=== PATIENT | female | born 1990 | race African-American/Black ===

== ENCOUNTER → 2016-11-14 | Outpatient (CLI) | payer BC ==
[~2016-11-14] MED LIST: CEPH500C PO; CEPH500C2 PO; PRENTAB26 PO
[2016-11-14 16:37] LABS: URINE APPEARANCE CLOUDY (CLEAR); URINE BILIRUBIN NEG (NEG); URINE COLOR YELLOW; URINE EPITHELIAL CELL AUTO >30 /lpf (0-5); URINE NITRITE NEG (NEG); URINE SPECIFIC GRAVITY 1.028 (1.000-1.030); UROBILINOGEN NEG (NEG)
[2016-11-14 16:40] LABS: MANUAL MICROSCOPIC REQUIRED? NO; REVIEW REQ? NO
== END | disposition home or self-care (01) ==
LOC: C.LABSPEC 16:09
PROVIDERS: ATTEND Obstetrics & Gynecology
DX: Z34.90 Encounter for supervision of normal pregnancy, unspecified, unspecified trimester (principal)

== ENCOUNTER → 2016-11-19 | Outpatient (CLI) | payer BC ==
[2016-11-19 15:22] LABS: BASO % 0.2 %; BASO ABS # 0.01 K/uL (0-0.2); COMPLETE YES; EOS % 0.6 %; HEMATOCRIT 37.3 % (37-47); IG% 0.2 %; LYMPH ABS # 1.95 K/uL (1.2-3.4); MEAN CELL VOLUME 78.4 fL (80-100); MEAN CORPUSCULAR HEMOGLOBIN 25.4 pg (25-34); MEAN CORPUSCULAR HGB CONC 32.4 g/dl (32-36); MEAN PLATELET VOLUME 10.9 fL (7.4-10.4); MONO % 11.5 %; NEUT % 49.5 %; PLATELET COUNT 335 K/uL (130-400); RED BLOOD COUNT 4.76 M/uL (4.2-5.4); WHITE BLOOD COUNT 5.13 K/uL (4.8-10.8)
== END | disposition home or self-care (01) ==
LOC: C.LAB1850 13:12
PROVIDERS: ATTEND Obstetrics & Gynecology
DX: Z34.90 Encounter for supervision of normal pregnancy, unspecified, unspecified trimester (principal); Z20.9 Contact with and (suspected) exposure to unspecified communicable disease

== ENCOUNTER → 2016-11-19 | Outpatient (CLI) | payer BC ==
[2016-11-22 00:25] LABS: CHLAMYDIA TRACH RNA*** NOT DETECTED (NOT DETECTED); GC (NEIS GONORRHOEAE)RNA** NOT DETECTED (NOT DETECTED)
== END | disposition home or self-care (01) ==
LOC: C.LABSPEC 18:03
PROVIDERS: ATTEND Obstetrics & Gynecology
DX: Z34.90 Encounter for supervision of normal pregnancy, unspecified, unspecified trimester (principal)

== ENCOUNTER → 2016-11-19 | Outpatient (CLI) | payer BC | END | disposition home or self-care (01) | LOC: C.PAPS 10:49 | PROVIDERS: ATTEND Obstetrics & Gynecology | DX: Z34.90 Encounter for supervision of normal pregnancy, unspecified, unspecified trimester (principal) ==

== ENCOUNTER → 2017-01-22 | Outpatient (CLI) | payer BC ==
[2017-01-22 18:19] LABS: GTGD 50 Grams
[2017-01-26 12:36] LABS: AFP CONCENTRATION 40.9 NG/ML; AFP MULTIPLE OF MEDIAN 1.13; AFPTS GESTATIONAL AGE 17.3 WEEKS; AFPTS INSULIN DEP DIABETIC? NO; AFPTS MATERNAL WT 206 LBS; ALPHA-FETOPROTEIN RACE AFRICAN AMERICAN=B; EDD DETERMINED BY ULTRASOUND; HISTORY OF NTD NO; REPEAT SAMPLE? NO
== END | disposition home or self-care (01) ==
LOC: C.LAB 17:25
PROVIDERS: ATTEND Obstetrics & Gynecology
DX: Z34.90 Encounter for supervision of normal pregnancy, unspecified, unspecified trimester (principal)

== ENCOUNTER 2017-02-06 16:14 | Emergency (ER) | payer BC ==
[~2017-02-06] VITALS: Ht 177.8 cm; Wt 92.1 kg
[2017-02-06 16:22] VITALS: TEMP 36.7; Ht 177.8 cm; Wt 92.1 kg
[2017-02-06] MEDS ORDERED: XYLOCAINE 1%/SOD BICARB 20 ML VIAL INFIL ONE (16:45)
--- NOTE | 2017-02-06 16:45 | EMERGENCY ROOM VISIT NOTE ---
ED Visit Note First contact with patient: 16:34 CHIEF COMPLAINT: Infection of the gluteal cleft HISTORY OF PRESENT ILLNESS: This 26-year-old female patient presents to the emergency department ambulatory after they noticed a hard, red, tender area to the gluteal cleft which has been intermittent since October but worse since yesterday. It is slowly getting larger, more painful and tender. No fever, chills, or loss of appetite. There has been no drainage from the area. There was nail injury to the area preceding the infection. They rate the pain as sharp9 and /10. Tetanus shot is up to date. They have tried nothing. The patient is not diabetic. The patient has no history of subcutaneous abscesses. The patient is 19 weeks . REVIEW OF SYSTEMS: A 6 system review of systems was completed with positives and pertinent negatives listed in the HPI. ALLERGIES: No known drug allergies MEDICATIONS: PMH: Patient denies SOCIAL HISTORY: The patient does not smoke. She lives locally PHYSICAL EXAM: Vital Signs: Reviewed Nurse's notes, vital signs stable. GENERAL : As a 26-year-old female, no acute distress, non toxic in appearance, well- developed well-nourished. SKIN: There is an erythematous indurated area to the gluteal cleft which measures about 1 cm in diameter. It is fluctuant but there is no pointing or drainage. There is a zone of inflammation around it but no lymphangitis. Capillary refill less than 2 seconds. MUSCULOSKELETAL: There is no limitation of the range of motion of the lower extremities. EMERGENCY DEPARTMENT COURSE: I examined the patient. After saline and Betadine cleansing and 6 mL of 1% buffered lidocaine anesthesia, the abscess was incised with a number 11 scalpel blade. A large amount of purulent material was released with more expressed by pressure. A swab was obtained for culture. The abscess cavity was further probed with a needle route delivery driver and the deep pocket expressed. The abscess cavity was then copiously irrigated with sterile saline under pressure. The area was then packed with plain packing. The area was cleaned with sterile saline and dressed with bacitracin and a bulky bandage. The patient tolerated the procedure well. heart tones were checked and were within normal limits The patient's heart rate improved after the procedure was performed She was given Tylenol. I discussed the use of narcotics during and the patient declined any narcotics. The patient will be placed on Keflex. A wound culture is pending. She should return in 48 hours for recheck and packing removal She should return sooner with worsening symptoms The patient was discharged home in stable condition. Current/Historical Medications Scheduled Cephalexin Monohydrate (Keflex), 500 MG PO TID Multivit/Min/Iron/Fol Ac/Pren ( Vitamin), 1 TAB PO HS Allergies Coded Allergies: No Known Allergies (Unverified , 02/06/17) Vital Signs Date Time Temp Pulse Resp B/P Pulse Ox O2 Delivery O2 Flow Rate FiO2 02/06/17 17:15 86 119/74 99 Room Air 02/06/17 16:22 36.7 110 16 115/75 98 Room Air Medications Administered Medications (Trade) Dose Ordered Sig/Roland Route Start Time Stop Time Status Last Admin Dose Admin Acetaminophen (Tylenol Tab) 1,000 mg NOW STAT PO 02/06/17 17:12 02/06/17 17:13 DC 02/06/17 17:19 1,000 MG Departure Information Impression Primary Impression: Pilonidal abscess Dispostion Home / Self-Care Condition GOOD Prescriptions Cephalexin Monohydrate (Keflex) 500 Mg Cap 500 MG PO TID for 7 Days, #21 CAP Prov: Cristina Thrasher PA-C 02/06/17 Referrals No Doctor, Assigned (PCP) Phil Powell M.D. Patient Instructions ED Cyst Pilonidal Infected [place], My [facility] Additional Instructions Return in 48 hours for a wound recheck and packing removal. Remove the outer dressing if it becomes soiled or wet. Tylenol according to package instructions for pain. Keflex as prescribed, until finished. Return sooner with any worsening redness, swelling, fevers. You may need to see general surgery after you have the baby for possible definitive excision.
[2017-02-06] MEDS ORDERED: ACETAMINOPHEN 500 MG TAB PO STA (17:12)
[2017-02-06 17:15] VITALS: BP 119/74; PULSE 86; O2SAT 99
[2017-02-06] MEDS ORDERED: CEPH500C PO (17:30)
[2017-03-03] MEDS ORDERED: PRENTAB26 PO (17:11)
== END 2017-02-06 17:50 | disposition home or self-care (01) ==
LOC: C.EDB 16:14 → C.EDD 17:50
DX: L05.01 Pilonidal cyst with abscess (principal); Z3A.19 19 weeks gestation of pregnancy

== ENCOUNTER 2017-02-08 17:19 | Emergency (ER) | payer BC ==
[~2017-02-08] VITALS: Ht 177.8 cm; Wt 91.7 kg
[~2017-02-08 17:19] MED LIST changes: -CEPH500C2 PO; -PRENTAB26 PO
[2017-02-08 17:23] VITALS: BP 119/78; TEMP 36.5; Ht 177.8 cm; Wt 91.7 kg
--- NOTE | 2017-02-08 17:58 | EMERGENCY ROOM VISIT NOTE ---
ED Visit Note First contact with patient: 17:31 CHIEF COMPLAINT: Packing removal History of present illness: Patient is a 26-year-old female who returns to the emergency department as advised for reevaluation of a pilonidal cyst abscess and packing removal. She had an I&D procedure performed 2 days ago. She reports decreased drainage, less pain and swelling. She has been taking the antibiotics as prescribed. There has not been any fever, chills, nausea or vomiting today. REVIEW OF SYSTEMS: Review of systems as per HPI. All other systems reviewed were negative. At least 6 systems reviewed. PMH: Electronic medical records are reviewed and summarized as above/below. See Problem List. SOCIAL HISTORY: Patient lives at home with her significant other. Nonsmoker. PHYSICAL EXAM: Vital Signs: Reviewed Nurse's notes. MENTAL STATUS: Alert, oriented, and not in distress. SKIN: Examination of the gluteal cleft show the I&D site with packing in place. Packing was removed. Area was palpated, there was no significant induration and no drainage expressed after packing removal. EMERGENCY DEPARTMENT COURSE: Culture results were reviewed. She is growing coag -negative staph without sensitivities and normal skin neida. Keflex should be appropriate coverage for this. Continued wound care measures were discussed with the patient and her significant other. She was advised to complete the course of antibiotics as previously prescribed, and to return to the emergency department if her symptoms return. She is understanding of this and was agreeable. She was discharged home in good condition. Problem List Medical Problems: (1) PCOS (polycystic ovarian syndrome) Status: Chronic Current/Historical Medications Scheduled Cephalexin Monohydrate (Keflex), 500 MG PO TID Multivit/Min/Iron/Fol Ac/Pren ( Vitamin), 1 TAB PO HS Allergies Coded Allergies: No Known Allergies (Unverified , 02/06/17) Vital Signs Date Time Temp Pulse Resp B/P Pulse Ox O2 Delivery O2 Flow Rate FiO2 02/08/17 18:04 98 18 100 02/08/17 17:23 36.5 102 20 119/78 100 Room Air Departure Information Impression Primary Impression: Abscess packing removal Referrals No Doctor, Assigned (PCP) [facility] Instructions [facility] Additional Instructions Finish Keflex as previously prescribed. Tylenol if needed for discomfort. Clean the area gently with mild soap and water and cover with a bandage until drainage subsides. Return to the emergency department as needed.
[2017-02-08 18:04] VITALS: PULSE 98; O2SAT 100
[2017-03-03] MEDS ORDERED: PRENTAB26 PO (17:11)
== END 2017-02-08 18:05 | disposition home or self-care (01) ==
LOC: C.EDB 17:20 → C.EDD 18:05
DX: Z48.00 Encounter for change or removal of nonsurgical wound dressing (principal); L05.01 Pilonidal cyst with abscess; Z98.890 Other specified postprocedural states; B95.7 Other staphylococcus as the cause of diseases classified elsewhere

== ENCOUNTER 2017-03-01 08:33 | Emergency (ER) | payer BC ==
[~2017-03-01] VITALS: Ht 177.8 cm; Wt 82.5 kg
[2017-03-01 08:42] VITALS: TEMP 36.6; Ht 177.8 cm; Wt 82.5 kg
--- NOTE | 2017-03-01 09:35 | EMERGENCY ROOM VISIT NOTE ---
History Report prepared by Sakshi: Lonny Wilkins Under the Supervision of: Dr. Gabino Guaman M.D. First contact with patient: 09:27 Chief Complaint: WOUND INFECTION Stated Complaint: CYST Nursing Triage Summary: pt reports pylinidol cyst had drained 1 month ago has returned las week , History of Present Illness The patient is a 27 year old female who presents to the Emergency Room with complaints of a reoccurring cyst located on her upper buttock that began coming back 6 days ago. She was seen in the ER 4 weeks ago for the same cyst. At that time, she had the cyst drained and packed. Currently, she states that her cyst is a lot smaller, but it is a lot more painful. She rates her pain a 7/10 in severity. She denies experiencing fevers, chills, or active drainage. Last time , she was placed on Keflex that she says worked well for her. She notes that she is 22 weeks . She is not having any trouble with her . Source of History: patient, spouse/significant other Onset: 6 days ago Position: buttock Symptom Intensity: 7/10 Quality: sharp Timing: other (Reoccuring) Associated Symptoms: No chills, No fevers Note: She denies any active drainage. Review of Systems See HPI for pertinent positives & negatives. A total of 10 systems reviewed and were otherwise negative. Past Medical & Surgical Medical Problems: (1) PCOS (polycystic ovarian syndrome) Old medical records were reviewed. Nurse's notes were reviewed and I agree with. Family History Patient reports no known family medical history. Social History Smoking Status: Never Smoker Smokeless Tobacco Use: No Drug Use: none Marital Status: Housing Status: lives with family Occupation Status: employed Current/Historical Medications Scheduled Multivit/Min/Iron/Fol Ac/Pren ( Vitamin), 1 TAB PO HS Allergies Coded Allergies: No Known Allergies (Unverified , 03/01/17) Physical Exam Vital Signs Date Time Temp Pulse Resp B/P Pulse Ox O2 Delivery O2 Flow Rate FiO2 03/01/17 11:01 86 16 137/78 99 03/01/17 08:42 36.6 110 20 117/72 98 Room Air Physical Exam General: Well developed well nourished in no acute distress, breathing comfortably on room air. Normal speech HEENT: Normal cephalic atraumatic. Pupils are equal round and reactive to light. Extraocular movements are intact. Oropharynx is pink with moist mucous membranes. No swelling of the mouth lips or tongue. Neck: Supple with a midline trachea. No meningeal signs or stiffness, no JVD or bruits. No Stridor. Chest: Clear to auscultation bilaterally. No wheezes or rhonchi. No increased work of breathing. Heart: regular rate and rhythm. Abdomen: Soft nontender, nondistended without rebound guarding or rigidity. Extremities: No cyanosis clubbing or edema. No calf tenderness or assymetry Spine/Back. Non tender to palpation. No CVA tenderness Buttock: There is a 1 cm fluctuant abscess on the upper buttock. No drainage. Skin: Good turgor without rashes. Neurologic exam: Cranial nerves two through 12 are intact. Motor and sensation are intact and symmetrical throughout. Medical Decision & Procedures Medications Administered Medications (Trade) Dose Ordered Sig/Roland Route Start Time Stop Time Status Last Admin Dose Admin Cephalexin Monohydrate (Keflex 500MG Home Pack) 1 homepack NOW ONCE PO 03/01/17 11:00 03/01/17 11:01 DC 03/01/17 11:00 1 HOMEPACK Procedure Incision & Drainage Indication: Abscess. Location: Upper buttock (Pilonoidal) Verbal consent was obtained after the risks and benefits were explained, including but not limited to bleeding, scarring, infection, pain, and bone/joint /nerve damage. At this time, the risks of the procedure are less than the risks of NOT performing the procedure. A time out was taken and the correct patient and site identified. The skin was prepped with betadine and a sterile field set. The wound was anesthetized with 1 cc of 1% lidocaine without epinephrine. The abscess cavity was entered with a number 11 blade and copious purulent pus material expressed. Copious irrigation was performed using normal saline. The wound was explored for foreign bodies and none found. Debridement was not performed. Packing with quarter inch gauze placed and a sterile dressing applied. Detailed wound care instructions and signs and symptoms of worsening infection reviewed with the patient. No complications and the patient tolerated the procedure well. ED Course 0927: Past medical records reviewed. The patient was evaluated in room B5, and a complete history and physical examination were performed. 0945: Ordered Lidocaine HCl 20 ml INFIL 1040: I performed an I&D procedure at this time. Please see the procedure note for more information. 1100: Ordered Cephalexin Monohydrate 1 homepack PO 1105: Upon reevaluation, the patient is resting. Her pain is better at a 4/10. I discussed the results and treatment plan with her. She verbalized agreement of the treatment plan. The patient was discharged home. Medical Decision Differentials include pilonidal abscess, abscess, and cellulitis. Medication Reconciliation: I attest that I have personally reviewed the patients current medication list. Blood pressure Screening: Patient was found to have normal blood pressure on screening and does not require follow-up. This patient comes in as described above. She has a pilonidal abscess that has recurred. It is fluctuant. She has no systemic complaints. She has no fever or chills. She is but has no complications of her at this point and had no contractions or gush of fluids. The abscess was numbed as outlined above a large amount of purulent drainage was obtained she was packed with quarter-inch gauze. She is to return in 2 days for removal and possibly to repack it if deemed necessary at the time. I recommend that she follow up with a surgeon this week as well. They may ultimately need to do surgery on her but will likely waits was after she is delivered. I'll start her back on the Keflex. She should return if: increasing pain , bleeding or drainage, worsening of symptoms, any new problems or concerns. Impression Primary Impression: Pilonidal abscess Additional Impression: Scribe Attestation The scribe's documentation has been prepared under my direction and personally reviewed by me in its entirety. I confirm that the note above accurately reflects all work, treatment, procedures, and medical decision making performed by me. Departure Information Dispostion Home / Self-Care Referrals No Doctor, Assigned (PCP) Champ Lama M.D. Forms HOME CARE DOCUMENTATION FORM, IMPORTANT VISIT INFORMATION, WORK / SCHOOL INSTRUCTIONS Patient Instructions My [facility], Pilonidal Cyst Additional Instructions REturn if 2 days for packing removal Return sooner if: fever, increasing pain or bleeding, worsening of symptoms, any new problems or concerns. Use Keflex 500 mg 3 times a dayantibiotic Follow-up with surgeon (Dr. Lama) this week for recheck For pain, may use acetaminophen/Tyelenol 650 mg every 6 hours, take with food. Do not take with other meds that contain acetaminophen/tyelenol Problem Qualifiers
[2017-03-01] MEDS ORDERED: XYLOCAINE 1%/SOD BICARB 20 ML VIAL INFIL ONE (09:45)
[2017-03-01] MEDS ORDERED: CEPHALEXIN 500MG HOME PACK 1 EA BTL PO ONE (11:00)
[2017-03-01 11:01] VITALS: BP 137/78; PULSE 86; O2SAT 99
[2017-03-03] MEDS ORDERED: PRENTAB26 PO (17:11)
== END 2017-03-01 11:02 | disposition home or self-care (01) ==
LOC: C.EDB 08:34
DX: L05.01 Pilonidal cyst with abscess (principal); Z33.1 Pregnant state, incidental

== ENCOUNTER 2017-03-03 19:25 | Emergency (ER) | payer BC ==
[~2017-03-03] VITALS: Ht 177.8 cm; Wt 94.3 kg
[~2017-03-03 19:25] MED LIST changes: -CEPH500C PO; +PRENTAB26 PO
[2017-03-03 19:44] VITALS: TEMP 36.7; Ht 177.8 cm; Wt 94.3 kg
[2017-03-03] MEDS ORDERED: CEPH500C2 PO (20:04)
[2017-03-03 20:10] VITALS: BP 138/89; PULSE 112; O2SAT 98
--- NOTE | 2017-03-04 19:09 | EMERGENCY ROOM VISIT NOTE ---
ED Visit Note First contact with patient: 19:48 CHIEF COMPLAINT: Abscess recheck.. HISTORY OF PRESENT ILLNESS: Ms. Day is a 27-year-old black female who ambulates into the ED accompanied by male friend requesting a recheck on a pilonidal abscess and packing removal. Patient reports she was seen in this ED 2 days ago and had an I&D procedure performed on a pilonidal abscess. She was prescribed Keflex and discharged home. Patient reports being discharge she is feeling much better. She has had no fevers, chills, sweats, abdominal pain, nausea, vomiting, decreased appetite. She reports her boyfriend looked at her abscess and feels like it is healing well. She does report she has had a small drainage of pus like material from the wound but no active bleeding. PHYSICAL EXAM: Vital Signs: Date Time Temp Pulse Resp B/P Pulse Ox O2 Delivery O2 Flow Rate FiO2 03/03/17 20:10 112 18 138/89 98 03/03/17 19:44 36.7 109 16 122/71 98 Room Air General: 27 year-old female in no acute distress, nontoxic appearing, afebrile and hemodynamically stable. Patient is very anxious. Neurological: Awake, alert and oriented to person, place and time. Answering questions appropriately and following commands. Skin: Warm, dry and pink. Right Buttock: Abscess site was identified. There was mild tenderness over the area but there was no induration, fluctuance, erythema or appearance of cellulitis. ED COURSE: Patient is assessed as noted above. Packing was easily removed. After packing the area was reexamined and I was not able to express any additional purulent material. Patient was educated about her condition and instructed on her treatment plan; she verbalized understanding and agreement with this plan. CLINICAL IMPRESSION: Abscess Recheck. Packing removal. DISPOSITION: Patient discharged to home in stable condition accompanied by a male friend; prior to departure she was reassessed and subjectively reported that she was pain and symptom-free. PLAN: Patient was encouraged to continue her current medications as prescribed including her antibiotic. Patient was encouraged to follow-up with family physician at the end of the course of her antibiotics for recheck. Patient was encouraged return the ED for return of pain, fevers, puslike drainage, red streaking or any new/concerning symptoms.
== END 2017-03-03 20:10 | disposition home or self-care (01) ==
LOC: C.EDB 19:26 → C.EDD 20:10
DX: Z09 Encounter for follow-up examination after completed treatment for conditions other than malignant neoplasm (principal); L05.01 Pilonidal cyst with abscess

== ENCOUNTER → 2017-04-09 | Outpatient (CLI) | payer BC ==
[~2017-04-09] MED LIST changes: +CEPH500C2 PO
[2017-04-09 16:48] LABS: HEMATOCRIT 36.6 % (37-47)
[2017-04-09 17:12] LABS: GTGD 50 Grams
== END | disposition home or self-care (01) ==
LOC: C.LAB1850 15:55
PROVIDERS: ATTEND Obstetrics & Gynecology
DX: Z34.90 Encounter for supervision of normal pregnancy, unspecified, unspecified trimester (principal)

== ENCOUNTER → 2017-04-09 | Outpatient (CLI) | payer BC ==
[2017-04-09 18:37] LABS: URINE APPEARANCE CLOUDY (CLEAR); URINE BILIRUBIN NEG (NEG); URINE COLOR DK YELLOW; URINE EPITHELIAL CELL AUTO >30 /lpf (0-5); URINE NITRITE NEG (NEG); URINE SPECIFIC GRAVITY 1.021 (1.000-1.030); UROBILINOGEN NEG (NEG)
[2017-04-09 18:40] LABS: MANUAL MICROSCOPIC REQUIRED? NO; REVIEW REQ? NO
== END | disposition home or self-care (01) ==
LOC: C.LABSPEC 17:38
PROVIDERS: ATTEND Obstetrics & Gynecology
DX: Z34.90 Encounter for supervision of normal pregnancy, unspecified, unspecified trimester (principal)

== ENCOUNTER → 2017-04-21 | Outpatient (CLI) | payer BC | END | disposition home or self-care (01) | LOC: C.LAB 07:32 | PROVIDERS: ATTEND Obstetrics & Gynecology | DX: O28.9 Unspecified abnormal findings on antenatal screening of mother (principal); Z3A.00 Weeks of gestation of pregnancy not specified ==

== ENCOUNTER → 2017-06-04 | Outpatient (CLI) | payer BC | END | disposition home or self-care (01) | LOC: C.LABSPEC 16:00 | PROVIDERS: ATTEND Obstetrics & Gynecology | DX: Z34.03 Encounter for supervision of normal first pregnancy, third trimester (principal); Z3A.00 Weeks of gestation of pregnancy not specified ==

== ENCOUNTER 2017-07-02 05:28 | Inpatient (IN) | payer BC ==
[~2017-07-02] VITALS: Ht 175.3 cm; Wt 105.7 kg
[2017-07-02] MEDS ORDERED: LACTATED RINGER'S 1000ML 1,000 ML IV SCH (05:55)
[2017-07-02] MEDS ORDERED: LACTATED RINGER'S 1000ML 1,000 ML IV PRN (05:55)
[2017-07-02 05:57] VITALS: Ht 175.3 cm; Wt 105.7 kg
[2017-07-02] MEDS ORDERED: EpHEDrine SULFATE INJ 50 MG/ML AMP ONE (06:57)
[2017-07-02] MEDS ORDERED: BUPIVACAINE 0.25% 30 ML VIAL ONE (06:57)
[2017-07-02] MEDS ORDERED: FENTANYL 2MCG/ML ROPIV 1.25MG/ML 100ML BAG EPI ONE (06:58)
[2017-07-02] MEDS ORDERED: FENTANYL CITRATE INJ 50 MCG/1 ML 2 ML VIAL ONE (06:58)
[2017-07-02 07:07] LABS: HEMATOCRIT 42.3 % (37-47); MEAN CELL VOLUME 87.9 fL (80-100); MEAN CORPUSCULAR HEMOGLOBIN 27.7 pg (25-34); MEAN CORPUSCULAR HGB CONC 31.4 g/dl (32-36); MEAN PLATELET VOLUME 12.4 fL (7.4-10.4); PLATELET COUNT 211 K/uL (130-400); RED BLOOD COUNT 4.81 M/uL (4.2-5.4); WHITE BLOOD COUNT 6.81 K/uL (4.8-10.8)
[2017-07-02] MEDS ORDERED: NALOXONE HCL INJ 1 MG in SODIUM CHLORIDE 0.9% 1000ML 1,000 ML IV PRN (07:40)
[2017-07-02] MEDS ORDERED: LACTATED RINGER'S 1000ML 500 ML IV PRN (07:40)
[2017-07-02] MEDS ORDERED: NALBUPHINE HCL INJ 10 MG/ML AMP IV PRN (07:45)
[2017-07-02] MEDS ORDERED: NALOXONE HCL INJ 0.4 MG/1 ML VIAL/CARP IV PRN (07:45)
[2017-07-02] MEDS ORDERED: DiphenhydrAMINE HCL 50 MG/ML VIAL IV PRN (07:45)
[2017-07-02] MEDS ORDERED: FENTANYL 2MCG/ML ROPIV 1.25MG/ML 100ML BAG EPI PRN (07:45)
[2017-07-02] MEDS ORDERED: EpHEDrine SULFATE INJ 50 MG/ML AMP IV PRN (07:45)
[2017-07-02] MEDS ORDERED: ONDANSETRON INJ 2 MG/ML 2 ML VIAL IV PRN (07:45)
[2017-07-02] MEDS ORDERED: OXYTOCIN 30 UNITS/500ML NSS IV ONE (11:42)
[2017-07-02 12:32] LABS: ALB/GLOB RATIO 0.6 (0.9-2); BUN/CREATININE RATIO 4.1 (10-20); CALCIUM 8.8 mg/dl (8.5-10.1); CREATININE 0.77 mg/dl (0.60-1.20); POTASSIUM 3.8 mmol/L (3.5-5.1); URIC ACID 5.1 mg/dl (2.6-7.2)
[2017-07-02] MEDS ORDERED: LANOLIN OINT EXT PRN ×2 (12:45)
[2017-07-02] MEDS ORDERED: OXYCODONE/ACETAMINOPHEN 5-325 TAB PO PRN (12:45)
[2017-07-02] MEDS ORDERED: SUPERCREAM 0.870 % 15GM JAR EXT PRN (12:45)
[2017-07-02] MEDS ORDERED: OXYTOCIN 30 UNITS/500ML NSS IV PRN (12:45)
[2017-07-02] MEDS ORDERED: HYDROCORTISONE ACETATE 25 MG SUPP PR PRN (12:45)
[2017-07-02] MEDS ORDERED: BENZOCAINE 20% AER SPR 82.5 GM CAN EXT PRN (12:45)
--- NOTE | 2017-07-02 13:25 | DELIVERY SUMMARY ---
DATE OF OPERATION: 07/02/2017 DELIVERY SUMMARY DATE OF DELIVERY: 07/02/2017. PREDELIVERY DIAGNOSES: 1. 27-year-old G3, P0-0-2-0 at 48 weeks 2 days. 2. Spontaneous labor. 3. Sickle cell trait. POSTDELIVERY DIAGNOSES: 1. 27-year-old G3, P0-0-2-0 at 48 weeks 2 days. 2. Spontaneous labor. 3. Sickle cell trait. PROCEDURE: 1. Spontaneous vaginal delivery. 2. Repair of 2nd degree laceration. DESCRIPTION OF DELIVERY: The patient progressed to complete with epidural anesthesia. After laboring down she began to push. She spontaneously vaginally delivered a viable female from the cephalic presentation. The head delivered in left occiput anterior position and then restituted to right occiput anterior position for delivery of the shoulder, the anterior shoulder followed by the posterior shoulder was delivered followed by the body. The baby was placed on the mother's abdomen and spontaneous cry was heard. Delayed cord clamping was performed and after 1 minute the cord was clamped and cut. Cord blood was obtained. The placenta was then delivered spontaneous and intact with a 3-vessel cord. Pitocin was given. The uterus and vagina were swept of all clots and debris. The cervix, vagina and perineum were inspected for lacerations and a second degree perineal laceration was noted. A rectal exam revealed no lacerations in the rectum. The laceration was repaired in standard fashion with 3-0 Vicryl in a running locked stitch. An additional stitch of 3-0 Vicryl was needed on the left vaginal wall to obtain hemostasis. Excellent hemostasis was achieved. The mother and baby tolerated the delivery well. Estimated blood loss 400 mL. FINDINGS: Viable female , Apgars 8 and 9, weight pending. Please see nursery records. At the conclusion of the delivery sponge, instrument and needle counts were correct x2. I attest to the content of the Intraoperative Record and any orders documented therein. Any exception s are noted below.
--- NOTE | 2017-07-02 13:36 | Anesthesia Procedure Note ---
Anesthesia Epidural Removal Nt Date & Time Jul 02, 2017 at 13:35 Vital Signs Pain Intensity: 0.0 Notes Mental Status: alert / awake / arousable, participated in evaluation Nausea / Vomiting: adequately controlled Pain: adequately controlled Airway Patency, RR, SpO2: stable & adequate BP & HR: stable & adequate Hydration State: stable & adequate Neuraxial Anesthesia: was administered Anesthetic Complications: no major complications apparent, pt satisfied with anesthetic care Epidural: removed without complications, with tip intact
[2017-07-02 16:58] VITALS: BP 127/85; PULSE 86; TEMP 36.7
[2017-07-02 19:05] VITALS: BP 170/84; PULSE 103; TEMP 36.9
[2017-07-02] MEDS: DOCUSATE SODIUM 100 MG CAP PO SCH (19:11)
[2017-07-02 19:55] VITALS: BP 128/83
[2017-07-02] MEDS: IBUPROFEN 600 MG TAB PO PRN (22:24)
[2017-07-03] VITALS (7 sets, daily range): BP systolic 111–146; BP diastolic 74–80; PULSE 66–98; TEMP 36.4–36.9; O2SAT 100
[2017-07-03 06:20] LABS: HEMATOCRIT 32.8 % (37-47)
--- NOTE | 2017-07-03 06:21 | Progress Note ---
Subjective Jul 03, 2017. Subjective conversation w/ patient, physical exam, chart review, lab review Ambulation: limited ambulation (to bathroom thus far) Voiding: no voiding problems Diet Tolerance: Regular Diet Lochia: Small Feeding Type: Breast Feeding Pain: Notes mild low abd cramping Comment: Found pt sitting up, conversing easily, denies post- issues or acute concerns. Review of Systems Constitutional: No fever, No chills Respiratory: No cough, No shortness of breath Cardiac: No chest pain Abdomen: No nausea, No vomiting, No diarrhea Female : No dysuria Objective Vital Signs Date Time Temp Pulse Resp B/P (MAP) Pulse Ox O2 Delivery O2 Flow Rate FiO2 07/03/17 04:20 36.9 77 18 137/80 (99) Room Air 07/03/17 00:01 Room Air 07/03/17 00:01 36.7 66 18 146/76 (99) Room Air 07/02/17 19:55 128/83 (98) 07/02/17 19:05 36.9 103 18 170/84 (112) Room Air 07/02/17 16:58 36.7 86 14 127/85 (99) Room Air 07/02/17 16:58 Room Air Physical Exam General Appearance: WELL-APPEARING, WD/WN, NO APPARENT DISTRESS Respiratory/Chest: lungs clear, normal breath sounds, no respiratory distress Cardiovascular: regular rate, rhythm, no edema, no murmur Abdomen: normal bowel sounds, non tender, soft Fundus: Firm, Non-Tender, Relation to Umbilicus (approx one down) Extremities: normal range of motion, no calf tenderness, + pedal edema ( minimal (B) edema) Laboratory Results Last 24 Hours Test 07/02/17 06:56 07/02/17 11:33 07/03/17 05:18 White Blood Count 6.81 K/uL Red Blood Count 4.81 M/uL Hemoglobin 13.3 g/dL Hematocrit 42.3 % Mean Corpuscular Volume 87.9 fL Mean Corpuscular Hemoglobin 27.7 pg Mean Corpuscular Hemoglobin Concent 31.4 g/dl RDW Standard Deviation 48.6 fL RDW Coefficient of Variation 15.3 % Platelet Count 211 K/uL Mean Platelet Volume 12.4 fL Sodium Level 140 mmol/L Potassium Level 3.8 mmol/L Chloride Level 108 mmol/L Carbon Dioxide Level 21 mmol/L Anion Gap 11.0 mmol/L Blood Urea Nitrogen 3 mg/dl Creatinine 0.77 mg/dl Est Creatinine Clear Calc Drug Dose 142.1 ml/min Estimated GFR () 122.6 Estimated GFR (Non- 105.8 BUN/Creatinine Ratio 4.1 Random Glucose 70 mg/dl Uric Acid 5.1 mg/dl Calcium Level 8.8 mg/dl Total Bilirubin 0.4 mg/dl Aspartate Amino Transf (AST/SGOT) 14 U/L Alanine Aminotransferase (ALT/SGPT) 13 U/L Alkaline Phosphatase 223 U/L Total Protein 7.0 gm/dl Albumin 2.5 gm/dl Globulin 4.5 gm/dl Albumin/Globulin Ratio 0.6 Assessment and Plan Problem List Medical Problems: (1) Abscess packing removal Status: Acute (2) Encounter for recheck of abscess following incision and drainage Status: Acute (3) PCOS (polycystic ovarian syndrome) Status: Chronic (4) Pilonidal abscess Status: Acute (5) Pilonidal abscess Status: Acute (6) Status: Acute Post- Day#: 1 Continue Routine Care: 27F s/p , now PPD #1. - Blood type O positive. GBS negative. Rubella immune. - Vital signs reviewed and stable. - Pain controlled with motrin. - No leg swelling or tenderness on calf palpation. Encourage ambulation. - Encourage breast feeding. - Hemoglobin pre-delivery 13.3, post-delivery 10.3. Bleeding has improved. Continue to monitor clinically. - Continue routine post-vaginal delivery care. - Pt agreed with above plan, all current questions answered. Luis Alberto Anderson MD, PGY1 Composite Science Teacher Physician Supervision Note: I was present with Dr. Anderson during the history and exam. I discussed the case with the resident and agree with the findings and plan as documented in the note. Any exceptions or clarifications are listed here: PPD#1 doing well, continue routine care. Documented By: Mel Salazar Resident Tracking Resident Involvement: Resident Care Provided Care Provided: OB Delivery (OB rounds)
[2017-07-03] MEDS: IBUPROFEN 600 MG TAB PO PRN (06:52)
[2017-07-03] MEDS: DOCUSATE SODIUM 100 MG CAP PO SCH ×2 (08:18→20:38)
[2017-07-03] MEDS ORDERED: BISACODYL 5 MG TABEC PO SCH (20:00)
--- NOTE | 2017-07-04 07:01 | Progress Note ---
Subjective Jul 04, 2017. Subjective conversation w/ patient, physical exam Voiding: no voiding problems Passing Gas: Yes Diet Tolerance: Regular Diet Lochia: Small Feeding Type: Breast Feeding Pain: Minimal low cramping Comment: Found pt resting comfortably, no overnight issues or acute concerns. Review of Systems Constitutional: No fever, No chills Respiratory: No cough, No shortness of breath Cardiac: No chest pain Abdomen: No nausea, No vomiting, No diarrhea Female : No dysuria Objective Vital Signs Date Time Temp Pulse Resp B/P (MAP) Pulse Ox O2 Delivery O2 Flow Rate FiO2 07/03/17 23:00 36.8 78 18 127/74 (91) Room Air 07/03/17 23:00 Room Air 07/03/17 21:03 36.4 84 16 111/75 (87) Room Air 07/03/17 15:15 36.7 98 18 127/78 (94) 100 Room Air 07/03/17 15:15 100 Room Air 07/03/17 12:00 36.4 77 16 127/78 (94) 100 Room Air 07/03/17 08:30 Room Air 07/03/17 07:59 36.4 77 20 122/75 (91) Room Air Physical Exam General Appearance: WELL-APPEARING, WD/WN, NO APPARENT DISTRESS Respiratory/Chest: lungs clear, normal breath sounds, no respiratory distress Cardiovascular: regular rate, rhythm, no murmur Abdomen: normal bowel sounds, non tender, soft Fundus: Firm, Non-Tender, Relation to Umbilicus (approx one down) Extremities: non-tender, no calf tenderness, + pedal edema (minimal (B)) Assessment and Plan Post- Day#: 2 Continue Routine Care: 27F s/p , now PPD #2. - Blood type O positive. GBS negative. Rubella immune. - Vital signs reviewed and stable. - Pain controlled with motrin. - No leg swelling or tenderness on calf palpation. Encourage ambulation. - Encourage breast feeding. - Hemoglobin pre-delivery 13.3, post-delivery 10.3. Continue to monitor clinically. - Continue routine post-vaginal delivery care. - Pt agreed with above plan, all current questions answered. Luis Alberto Anderson MD, PGY1 Backend Java Developer Physician Supervision Note: I interviewed and examined the patient. Discussed with Dr. Handbury and agree with findings and plan as documented in the note. Any exceptions or clarifications are listed here: Patient ready for d/c. Instructions given, f/u in 6 weeks Documented By: Pantera Saba Resident Tracking Resident Involvement: Resident Care Provided Care Provided: OB Delivery (OB rounds)
--- NOTE | 2017-07-04 07:26 | Discharge Instructions ---
Discharge Instructions Date of Service Jul 04, 2017. Admission Reason for Admission: LABOR Discharge Discharge Diagnosis / Problem: Recovery from vaginal delivery Discharge Goals Goal(s): Routine recovery after delivery Medications Continue Dispensed Medications: supercream, dermaplast, tucks, lansinoh Activity Recommendations Activity Limitations: per Instructions/Follow-up section . Instructions / Follow-Up Instructions / Follow-Up ACTIVITY RECOMMENDATIONS: * Gradual return to full activity over the next 2-3 weeks. * No lifting - nothing heavier than baby over the next 2-3 weeks. * Do not engage in vigorous exercise, sexual activity or sports until cleared by your physician. * Do not drive or operate any motorized equipment until cleared by your physician. * You may shower/bathe daily. MEDICATIONS: For discomfort or pain, you may use Acetaminophen (Tylenol), Ibuprofen (Advil), or Naproxen (Aleve) following the package directions. For constipation you may use Colace following the package directions. BREAST CARE: If you are not breast feeding: * Wear a supportive bra 24 hours a day for one to two weeks. * Avoid stimulating your breasts and nipples as much as possible during the first few weeks after delivery. * When taking a shower, have the warm water hit your back, not breasts. * When your breasts feel full, apply ice packs. Usually three to four times a day helps ease the discomfort. * Take a mild pain medication (Tylenol / Motrin) when you are uncomfortable. If breast feeding: * Use breast milk to lubricate nipples. Lansinoh cream may be used for sore nipples. You do not need to remove cream prior to breast feeding. If using a different brand of cream, check the label for directions regarding removal of cream prior to nursing. * Wear a supportive bra. * If having problems with breasts or breast feeding, call a legal nurse consultant or your health care provider. EPISIOTOMY CARE: After delivery, if you have an episiotomy (stitches), the following steps will ease discomfort and aid healing. * For the first 24 hours after delivery, place ice packs next to your episiotomy to help reduce swelling. * After the first 24 hour-period, sitz baths, either portable or in the tub, are suggested. A shower with a shower arm sprayed over the episiotomy may be comforting. * Yodit care should be done after each voiding and bowel movement. Squirt warm water from a plastic bottle over the perineum (region of the body between the anus and urinary opening) and pat dry. * Use Dermoplast to ease discomfort. Shake container. [place] directly over the episiotomy. Place a Tucks on a clean sanitary pad next to your episiotomy. SPECIAL CARE INSTRUCTIONS: When you are discharged from the hospital, it is important for you to follow the instructions listed below: * During the first week at home, you should be able to care for yourself and your baby. In addition, the usual light household activities are encouraged. * Limit your activities to the way you feel. Do not try to clean the house or move furniture. Be sensible. * If you actively engage in sports and have done so up until the time of your delivery, you may resume these activities as soon as you feel able. This may take up to one month or even longer. Use good judgment. * Continue to take your vitamins for at least six weeks after the of your baby. * Your diet need not be limited unless you were on a special diet before your delivery. Breast-feeding mothers need around 2500 calories per day and at least 64-80 ounces of fluid per day (8 to 10 glasses). * You should eat foods from the four major food groups. Crash diets or fad diets are to be avoided. Eating lean meats, fresh fruits and vegetables, low-fat dairy products, high fiber foods and a regular exercise program, will help you get back to your pre- weight without putting your health at risk. * Constipation is sometimes a problem after delivery. Take a mild laxative as needed. If breast feeding, Milk of Magnesia is acceptable to use. You may use a suppository or Fleets enema if no episiotomy. * A daily shower or tub bath is suggested. Be sure to thoroughly and gently dry the perineum. * A bloody vaginal discharge will usually continue until around four weeks post . A small amount of bleeding may continue for as long as six weeks. Vaginal discharge changes from the bright red bleeding after delivery to pink then brownish and finally yellowish-pink before becoming white and disappearing. * Bleeding may increase with activity. Your first period may come in 4-8 weeks. If you are breast feeding, your period may be delayed even longer. * [place] (sex) can begin whenever both you and your partner feel comfortable and do not have any form of genital infection. It is recommended that you wait at least six weeks for internal and external healing to occur. If you have questions, please talk to your health care practitioner. A condom should be used to prevent infection and . * Foreplay, gentle intercourse and lubrication is very important the first several times to prevent pain. A water-based lubricant such as K-Y jelly or Astroglide may be used. * If you have RH negative blood and your baby is RH positive, you will receive RHOGAM by injection prior to discharge. The nurse will give you a card to keep with you that has the date and place that you received RHOGAM after delivery. * During your care, you had a Rubella screen done to check for the presence of rubella antibodies in your blood. If your test was negative, you will receive a Rubella vaccine prior to discharge. This vaccine may cause a fever, soreness at the injection site and flu-like symptoms. If these symptoms persist, notify your health care practitioner. is not advised for one month after a Rubella vaccine. * Verbalizes understanding of car seat law as reviewed with patient nursing. * Car Seat hand-out given and reviewed with patient by nursing. * Shaken baby information reviewed with patient by nursing. Call you doctor if: * Heavy bleeding (saturating several pads an hour) or passing clots the size of your fist. * A fever >101 degrees F (38.3 degrees C) on two occasions four hours apart and /or chills. * Unusual pain in the pelvic or vaginal areas. * "Baby Blues" lasting longer than two weeks. If you have any questions or concerns, call your health care practitioner at . FOLLOW UP VISIT: * Please call the office at to schedule a 6 week examination. It is important you keep this appointment. It is important for you to make arrangements for either yearly or twice yearly check-ups thereafter. Current Hospital Diet Patient's current hospital diet: Regular OB Diet Discharge Diet Recommended Diet: Regular OB Diet Pending Studies Studies pending at discharge: no Medical Emergencies . Who to Call and When: Medical Emergencies: If at any time you feel your situation is an emergency, please call 911 immediately. . Non-Emergent Contact Non-Emergency issues call your: Web Systems Developer . . "Provider Documentation" section prepared by Luis Alberto Anderson. . VTE Core Measure Inpt VTE Proph given/why not?: Treatment not indicated
[2017-07-04] MEDS: DOCUSATE SODIUM 100 MG CAP PO SCH (08:24)
[2017-07-04 08:25] VITALS: BP 140/79; PULSE 77; TEMP 36.3
[2017-07-04] MEDS: IBUPROFEN 600 MG TAB PO PRN (08:27)
[2017-07-04 10:03] VITALS: BP_DIAS 79; PULSE 77; TEMP 36.3
== END 2017-07-04 11:18 | disposition home or self-care (01) | DRG 775 ==
LOC: C.LD 05:28 → C.OPB 05:28 → C.LD 06:10 → C.OBG 16:36
PROVIDERS: ADMIT Obstetrics & Gynecology; ATTEND Obstetrics & Gynecology
PROC: 0KQM0ZZ Repair Perineum Muscle, Open Approach (ICD-10-PCS; principal; 2017-07-02)
PROC: 10E0XZZ Delivery of Products of Conception, External Approach (ICD-10-PCS; principal; 2017-07-02)
DX: O48.0 Post-term pregnancy (principal); O70.1 Second degree perineal laceration during delivery; O99.02 Anemia complicating childbirth; D57.3 Sickle-cell trait; Z3A.40 40 weeks gestation of pregnancy; Z37.0 Single live birth

== ENCOUNTER 2020-05-03 07:47 | Inpatient (IN) ==
--- NOTE | 2020-05-03 08:15 | History & Physical Report ---
Date of Service May 03, 2020 Assessment & Plan (1) Elective induction of labor planned: Maryellen is a 30 y/o female currently at 40-5/7 WGA with an JOSÉ MIGUEL 04/29/20 as determined by LMP who is here with her , Stanley, for IOL in setting of post-dates - Will proceed [facility] - Patient requests epidural -- anesthesia to be consulted - Rubella immune - O+ / antibody neg - GBS neg Present on Admission?: Yes History of Present Illness Primary Care Provider: Guadalupe Higginbotham MD Maryellen is a 30 y/o female currently at 40-5/7 WGA with an JOSÉ MIGUEL 04/29/20 as determined by LMP who is here for IOL in setting of post-dates. Her was uncomplicated. She does have a h/o macrosomia with her first child; growth scan for current at 32 weeks demonstrated length at 68%ile and AC at 56%. Maria Del Carmen is also a known carrier of the sickle trait. Endorses contractions a few days ago, but not since; + movement; denies fluid loss; denies bloody show External FHT and external uterine monitors used; Category I tracing; +FHT variability. Had regular appointments with OB. Labs: (09/20/19) Blood type: O+ Antibody screen: neg H.5 (01/03) Hct: 37.4 (01/03) WBC: 7.8 (01/03) Plt: 266 (01/03) Rubella: immune VDRL/RPR: neg Gonorrhea: neg Chlamydia: neg HIV: neg GBS: neg Other screens: Maryellen is a known carrier of sickle cell trait Allergies Allergy/AdvReac Type Severity Reaction Status Date / Time No Known Allergies Allergy Verified 05/03/20 08:33 Home Medications Home Medications Medication Instructions Recorded Confirmed Type prenat.vits,ronak,[id number] 1 tab PO DAILY 09/16/19 05/03/20 History Patient History Surgical History H/O oral surgery Family History (Updated 09/16/19 @ 11:01 by Zarina Hoffman) Aunt Diabetes Grandmother (Maternal) Heart disease Hypertension Mother Hypertension Fibroids Gestational diabetes Father Hx of migraines Social History (Updated 09/16/19 @ 11:02 by Zarina Hoffman) Smoking Status: Never smoker Hx Alcohol Use: No Hx Substance Use: No Preferred Language: Macedonian Communication Ability: Effective Beliefs That Will Affect Care: None marital status: marital status details: Stanley Gill (29) [phone] Current Living Situation: Family Current Living Situation Comment: and 3 yo daughter current occupational status: employed 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 No acute distress. Cardiac: Regular rate and rhythm, no murmurs/rubs/gallops. Respiratory: Clear to auscultation bilaterally a/p, no wheezes/rales/rhonchi. No increased work of breathing. Symmetrical chest rise. No respiratory distress. Pelvic: Dilation 5cm; Effacement 75; Station -[address] Dover Lower Extremities: No lower extremity edema or swelling. No deep calf pain. Clement's negative bilaterally Results & Data Vital Signs (Past 12 Hours) Vital Signs Pulse BP 05/03/20 08:11 101 H 134/85 Supervising Physician Co-Signing Physician Notes Resident Physician Supervision Note: I interviewed and examined the patient. Discussed with Dr. Terrell and agree with findings and plan as documented in the note. Any exceptions or clarifications are listed here: Patient is a with iup at 40 + weeks who presents for induction for postdates. first delivered of a 9+ pound baby. has been uncomplicated. Plan pitocin induction, arom. epidural on demand. Anticipate . Irregular contractions at present. category one strip. Documented By: Trish Dover MD, FACOG Resident Activity Tracking Resident Involvement: Resident Care Provided Care Provided: Adult Hospital Medicine and OB Delivery
[2020-05-03] MEDS ORDERED: OXYTOCIN 30 UNITS/500 ML BAG IV PRN ×3 (08:31→17:03)
[2020-05-03] MEDS: LACTATED RINGER'S 1,000 ML IV PRN ×2 (08:56→11:30)
[2020-05-03 08:57] LABS: Hematocrit (blood only) 40.3 % (37-47); Hemoglobin 13.1 g/dL (12.0-16.0); Mean Corpuscular Hemoglobin 28.2 pg (25-34); Mean Corpuscular Volume 86.9 fL (80-100); Mean Platelet Volume 11.9 fL (7.4-10.4); Platelet Count 238 K/uL (130-400); RDW Coefficient of Variation 15.4 % (11.5-14.5); Red Blood Count 4.64 M/uL (4.2-5.4); White Blood Count 7.17 K/uL (4.8-10.8)
[2020-05-03 09:06] LABS: Mean Corpuscular Hgb Conc 32.5 g/dL (32-36)
[2020-05-03] MEDS ORDERED: ePHEDrine sulfate 50 MG/ML AMP ONE (10:56)
[2020-05-03] MEDS ORDERED: fentaNYL citrate 100 MCG/2 ML VIAL ONE (10:56)
[2020-05-03] MEDS ORDERED: BUPIVACAINE 0.25% 30 ML VIAL ONE (10:56)
[2020-05-03] MEDS ORDERED: fentaNYL 2MCG/ML ROPIV 1.25MG/ML 100 ML BAG EPI ONE (10:57)
[2020-05-03] MEDS ORDERED: NALOXONE HCL 0.4 MG/1 ML VIAL/CARP IV PRN (11:25)
[2020-05-03] MEDS ORDERED: ONDANSETRON INJ 2 MG/ML 2 ML VIAL IV PRN (11:25)
[2020-05-03] MEDS ORDERED: fentaNYL 2MCG/ML ROPIV 1.25MG/ML 100 ML BAG EPI PRN (11:25)
[2020-05-03] MEDS ORDERED: NALOXONE HCL 1 MG in SODIUM CHLORIDE 0.9% 1000ML 1,000 ML IV PRN (11:25)
[2020-05-03] MEDS ORDERED: DiphenhydrAMINE HCL 50 MG/ML VIAL IV PRN (11:25)
[2020-05-03] MEDS ORDERED: ePHEDrine sulfate 50 MG/ML AMP IV PRN (11:25)
--- NOTE | 2020-05-03 11:27 | Anesthesiology Consultation ---
Date of Service May 03, 2020 Assessment & Plan (1) Encounter for pre-operative examination: Chart Review Chart Review: Acceptable Risk for Surgery and Patient NOT seen in Pre Admission Testing Consults Requested none ASA ASA2 Proposed Anesthesia Anesthesia Type: Labor Epidural Risk / Benefits Reviewed With: PT / POA / Parent / Guardian, Accepts Plan and Informed Consent Obtained History Height/Weight Height: 5 ft 10 in Weight: 110.223 kg Allergies Allergy/AdvReac Type Severity Reaction Status Date / Time No Known Allergies Allergy Verified 05/03/20 08:33 Medications Home Medications Medication Instructions Recorded Confirmed Last Taken prenat.vits,ronak,[id number] 1 tab PO DAILY 09/16/19 05/03/20 05/02/20 20:00 Active Medications Generic Name Dose Route Start Last Admin Trade Name Freq PRN Reason Stop Dose Admin Lactated Ringer's 1,000 mls @ 125 mls/hr 05/03/20 08:31 05/03/20 10:49 Lr IV 05/05/20 08:30 999 mls/hr .Q8H PRN Infusion L&D Protocol Protocol Oxytocin 30 units in 500 mls @ 8 mls/hr 05/03/20 08:31 05/03/20 10:30 Pitocin IV 05/05/20 08:30 0.48 units/hr .Q24H PRN 8 mls/hr Labor Induction/Augmentation Titration Protocol 0.48 UNITS/HR NPO Date Last Intake of Fluids: 05/03/20 Time Last Intake of Fluids: 08:00 Date Last Intake of Solids: 05/02/20 Time Last Intake of Solids: 22:00 Exercise / Class Metabolic Activity II 4-5 Yardwork/Stairs/Walk up hill Past Family History Family History (Updated 09/16/19 @ 11:01 by Zarina Hoffman) Aunt Diabetes Grandmother (Maternal) Heart disease Hypertension Mother Hypertension Fibroids Gestational diabetes Father Hx of migraines Past Surgical History Surgical History H/O oral surgery Past Anesthesia History No Hx of Anesthesia Complications and No Family Hx of Anesthesia Complications History of PONV No Hx of PONV and No Hx of Motion Sickness Social History Smoking Status: Never smoker Hx Alcohol Use: No Hx Substance Use: No Physical Exam Vital Signs Last Vital Signs Temp 37.1 C 05/03/20 11:11 Pulse 73 05/03/20 11:11 Resp 20 05/03/20 11:11 BP 129/76 05/03/20 11:11 ENMT Mouth: no dentition abnormality Thyromental Distance: > or= 3.5 Finger Breadths Mallampati Class: II Neck normal visual inspection Respiratory normal respiratory effort Auscultation: lungs clear to auscultation bilaterally Cardiovascular Rate/Rhythm: regular rate and regular rhythm Psychiatric Orientation: alert Testing Laboratory Results 05/03/20 08:47
--- NOTE | 2020-05-03 12:59 | Labor Progress Brief Note ---
Date of Service May 03, 2020 Subjective comfortable with epidural Assessment & Plan (1) Elective induction of labor planned: (2) History of macrosomia in in prior , currently in third trimester: Admission and Anticipated Discharge Date Admission Date: May 03, 2020 Continue current management. JFetus category one. anticipate . Physical Exam Constitutional: WD/WN, vitals as above Psychiatric: A+Ox3, euthymic affect Genitourinary: cx--6/90/-2 arom--copious , clear toco--q2-4min, pit 12 efm--130s wtih mod variability, accels to 150s, no decels Results & Data ([place]) Vital Signs (Past 12 Hours) Vital Signs Temp Pulse Resp BP Pulse Ox 05/03/20 12:54 83 95 05/03/20 12:52 75 20 123/78 05/03/20 12:51 72 94 05/03/20 12:49 79 95 05/03/20 12:44 75 95 05/03/20 12:39 84 96 05/03/20 12:34 82 95 05/03/20 12:30 77 94 05/03/20 12:29 87 95 05/03/20 12:25 75 94 05/03/20 12:24 74 95 05/03/20 12:22 73 121/77 05/03/20 12:19 76 96 05/03/20 12:14 75 96 05/03/20 12:09 72 96 05/03/20 12:04 85 97 05/03/20 12:02 73 124/70 05/03/20 11:59 78 97 05/03/20 11:57 78 118/69 05/03/20 11:54 77 98 05/03/20 11:52 76 122/69 05/03/20 11:49 90 100 05/03/20 11:44 84 98 05/03/20 11:42 75 129/71 05/03/20 11:35 78 100 05/03/20 11:34 88 91 05/03/20 11:30 81 100 05/03/20 11:11 37.1 C 73 20 129/76 05/03/20 10:05 78 128/79 05/03/20 08:58 73 115/72 05/03/20 08:13 37.1 C 20 05/03/20 08:11 101 H 134/85 Coding Level of Care Code None Diagnoses Elective induction of labor planned History of macrosomia in in prior , currently in third trimester O09.293
[2020-05-03] MEDS ORDERED: OXYCODONE/ACETAMINOPHEN 5mg/325mg TAB PO PRN (16:01)
[2020-05-03] MEDS ORDERED: ACETAMINOPHEN 325 MG TAB PO PRN (16:01)
--- NOTE | 2020-05-03 16:12 | Delivery Summary ---
Vaginal Delivery Summary Date of Service May 03, 2020 Vaginal Delivery Summary Pre-operative Diagnosis: at 40+weeks postdates induction hx of 9# baby vulvar inclusion cyst Post-operative Diagnosis: same Procedure: pitocin induction epidural arom second degree laceration and repair excision of vulvar cyst EBL: 400cc Anesthesia: epidural Procedure: The patient pushed for 20 minutes to deliver a viable female in DOP position. A loose nuchal cord x 1 was reduced. The nose and mouth were bulb suctioned on the perineum and the rest of the infant was then delivered without difficulty. The baby was vigorous. The nose and mouth were again bulb suctioned and the was placed in the maternal abdomen for drying and attention. Cord was clamped and cut at one minute of life. Cord blood and segment obtained. Placenta delivered spontaneous, intact with a three vessel cord. Cervix/sulci/rectum were intact. A second degree perineal laceration was repaired in the normal standard fashion. Additionally, a 2cm inclusion cyst at the introitus was ruptured during delivery and the cyst was excised and sent to pathology. Hemostasis obtained with dilute pitocin and fundal massage. Apgars were 8/9. Mother and baby doing well at the end of the delivery. [facility] Vaginal Delivery Charge Vaginal Delivery Codes: 17118 global code for the antepartum, delivery, and p ost-
[2020-05-03] MEDS: IBUPROFEN 600 MG TAB PO PRN (16:13)
[2020-05-03] MEDS ORDERED: bisacodyL 10 MG SUPP PR PRN (17:03)
[2020-05-03] MEDS ORDERED: SUPERCREAM 0.870% 15 GM JAR EXT PRN (17:03)
[2020-05-03] MEDS ORDERED: BENZOCAINE 20% AER SPR 82.5 GM CAN EXT PRN (17:03)
[2020-05-03] MEDS ORDERED: HYDROCORTISONE ACETATE 25 MG SUPP PR PRN (17:03)
--- NOTE | 2020-05-03 17:40 | Anesthesia Procedure Note ---
Date of Service May 03, 2020 Anesthesia Post Epidural Note Vital Signs Vital Signs: Temp Pulse Resp BP Pulse Ox 36.9 C 71 20 130/67 96 05/03/20 15:52 05/03/20 17:37 05/03/20 17:07 05/03/20 17:37 05/03/20 15:59 Pain Intensity Buttock: Pain Intensity: 1 Notes Mental Status: alert / awake / arousable Nausea / Vomiting: adequately controlled Pain: adequately controlled Airway Patency, RR, SpO2: stable & adequate BP & HR: stable & adequate Hydration State: stable & adequate Neuraxial Anesthesia: was administered and sensory block is resolving Anesthetic Complications: no major complications apparent and Pt Satisfied with anesthetic care Epidural: Removed without complications and With tip intact
[2020-05-03] MEDS: DOCUSATE SODIUM 100 MG CAP PO SCH (21:44)
[2020-05-04] MEDS: IBUPROFEN 600 MG TAB PO PRN ×2 (04:24→20:26)
--- NOTE | 2020-05-04 05:41 | Obstetrical Progress Note ---
Date of Service <Scott Terrell MD - Last Filed: 05/04/20 06:38> May 04, 2020 Assessment & Plan <Scott Terrell MD - Last Filed: 05/04/20 06:38> (1) (spontaneous vaginal delivery): Maryellen is a 30 y/o female who is now PPD#1 following IOL with subsequent at 40-5/7 weeks in setting of post date . Doing well on PPD #1. - Feels well today. Eating well, voiding well, ambulating well. - Pain well controlled with ibuprofen 600mg Q4H PRN. - Routine PPD care -- OOB, ambulation, diet as tolerated Day #:: 1 Subjective <Scott Terrell MD - Last Filed: 05/04/20 06:38> Maryellen is a 30 y/o female who is now PPD#1 following IOL with subsequent at 40-5/7 weeks IN SETTING OF POST-DATE . Reports feeling well overall this morning. Endorses some abdominal cramping that is well managed on analgesics. Voiding without difficulty. Tolerating meals overnight and able to ambulate some. Passing gas but no bowel movements yet. Some persistent lochia with some improvement this morning. Breast feeding without difficulty. Review of Systems Denies fever, chills, sweats Denies shortness of breath, difficulty breathing, chest pain, palpitations, chest pressure. Denies breast pain. Denies dysuria. Denies headache. Physical Exam <Scott Terrell MD - Last Filed: 05/04/20 06:38> General: Alert, oriented. No acute distress. Cardiac: Regular rate and rhythm, no murmurs/rubs/gallops. Respiratory: Clear to auscultation bilaterally a/p, no wheezes/rales/rhonchi. No increased work of breathing. Symmetrical chest rise. No respiratory distress. Abdomen: Soft, nontender, nondistended. Bowel sounds present. Uterus: Uterine fundus firm, palpable at level of umbilicus. Lower Extremities: No lower extremity edema or swelling. No deep calf pain. Clement's negative bilaterally. Results & Data <Scott Terrell MD - Last Filed: 05/04/20 06:38> Vital Signs (Past 12 Hours) Vital Signs Temp Pulse Pulse Resp BP BP Pulse Ox 05/04/20 04:15 36.7 C 87 16 124/80 99 05/03/20 23:20 36.5 C 73 18 118/77 100 05/03/20 20:05 36.4 C L 81 20 113/72 98 05/03/20 18:53 36.8 C 65 20 153/60 H 05/03/20 18:37 87 132/63 05/03/20 18:22 84 168/71 H 05/03/20 18:06 75 145/75 H 05/03/20 17:51 86 20 128/67 <Trish Dover MD, FACOG - Last Filed: 05/04/20 07:33> Co-Signing Physician Notes Resident Physician Supervision Note: I interviewed and examined the patient. Discussed with Dr. Terrell and agree with findings and plan as documented in the note. Any exceptions or clarifications are listed here: Doing well. Would like d/c later today. Instructions reviewed. Documented By: Trish Dover MD, FACOG Resident Activity Tracking <Scott Terrell MD - Last Filed: 05/04/20 06:38> Resident Involvement: Resident Care Provided Care Provided: Adult Hospital Medicine and OB Delivery
[2020-05-04 06:43] LABS: Hematocrit (blood only) 33.7 % (37-47); Hemoglobin 11.3 g/dL (12.0-16.0)
[2020-05-04] MEDS ORDERED: DIPHTHERIA/TETANUS/PERTUSSIS 0.5 ML SYR/VIAL IM ONE (09:00)
[2020-05-04] MEDS: PRENATAL VITAMIN 1 TAB PO SCH ×2 (09:20→09:24)
[2020-05-04] MEDS: DOCUSATE SODIUM 100 MG CAP PO SCH ×2 (09:21→20:26)
[2020-05-04] MEDS ORDERED: bisacodyL 5 MG TABEC PO SCH (20:00)
--- NOTE | 2020-05-05 05:28 | Obstetrical Progress Note ---
Date of Service <Scott Terrell MD - Last Filed: 05/05/20 06:19> May 05, 2020 Assessment & Plan <Scott Terrell MD - Last Filed: 05/05/20 06:19> (1) (spontaneous vaginal delivery): Maryellen is a 30 y/o female who is now PPD#2 following IOL with subsequent at 40-5/7 weeks in setting of post date . - Feels well today. Eating well, voiding well, ambulating well. - Pain well controlled with ibuprofen 600mg Q4H PRN. - Routine PPD care -- OOB, ambulation, diet as tolerated - anticipate d/c today pending peds approval Subjective <Scott Terrell MD - Last Filed: 05/05/20 06:19> Maryellen is a 30 y/o female who is now PPD #2 following IOP and subsequent in setting of a post-date . Reports feeling well overall this morning. Minimal abdominal cramping with pain well controlled on analgesics. Voiding without difficulty. Tolerating meals overnight and able to ambulate some. Endorses passing gas but not yet passing bowel movements. Some persistent lochia with some improvement this morning. Bottle feeding. Review of Systems Denies fever, chills, sweats Denies shortness of breath, difficulty breathing, chest pain, palpitations, chest pressure. Denies breast pain. Denies dysuria. Denies headache. Physical Exam <Scott Terrell MD - Last Filed: 05/05/20 06:19> General: Alert, oriented. No acute distress. Cardiac: Regular rate and rhythm, no murmurs/rubs/gallops. Respiratory: Clear to auscultation bilaterally a/p, no wheezes/rales/rhonchi. No increased work of breathing. Symmetrical chest rise. No respiratory distress. Abdomen: Soft, nontender, nondistended. Bowel sounds present. Uterus: Uterine fundus firm, palpable 2 cm below umbilicus. Lower Extremities: No lower extremity edema or swelling. No deep calf pain. Clement's negative bilaterally. Results & Data <Scott Terrell MD - Last Filed: 05/05/20 06:19> Vital Signs (Past 12 Hours) Vital Signs Temp Pulse Resp BP 05/05/20 00:00 36.5 C 73 73 H 123/79 05/04/20 21:16 36.6 C 91 H 18 137/80 <Sravani Rios MD - Last Filed: 05/05/20 07:51> Co-Signing Physician Notes I have reviewed the resident's note and examined the patient myself, and agree with the note above.
[2020-05-05] MEDS: DOCUSATE SODIUM 100 MG CAP PO SCH (08:19)
[2020-05-05] MEDS: IBUPROFEN 600 MG TAB PO PRN (08:20)
[2020-05-05] MEDS: PRENATAL VITAMIN 1 TAB PO SCH (08:20)
== END 2020-05-05 11:55 | disposition home or self-care (01) | DRG 768 ==
LOC: 4S1 07:47 → 4S2 20:18

== ENCOUNTER 2020-05-18 15:57 | Inpatient (IN) ==
[2020-05-18] MEDS ORDERED: HYDROmorphone INJ 1 MG/ML SYRINGE IV PRN (16:16)
[2020-05-18] MEDS ORDERED: SODIUM CHLORIDE 0.9% 1000ML 1,000 ML IV ONE (16:16)
[2020-05-18] MEDS ORDERED: KETOROLAC 30 MG/ML VIAL IV STA (16:16)
[2020-05-18] MEDS ORDERED: ONDANSETRON INJ 2 MG/ML 2 ML VIAL IV STA (16:16)
[2020-05-18 16:24] LABS: Basophils # (auto) 0.03 K/uL (0-0.2); Basophils % (auto) 0.3 %; Eosinophils # (auto) 0.08 K/uL (0-0.5); Eosinophils % (auto) 0.9 %; Hematocrit (blood only) 40.9 % (37-47); Hemoglobin 13.5 g/dL (12.0-16.0); Immature Granulocytes # (auto) 0.01 K/uL (0.00-0.02); Immature Granulocytes % (auto) 0.1 %; Lymphocytes # (auto) 1.92 K/uL (1.2-3.4); Lymphocytes % (auto) 21.6 %; Mean Corpuscular Hemoglobin 28.7 pg (25-34); Mean Corpuscular Volume 86.8 fL (80-100); Mean Platelet Volume 11.4 fL (7.4-10.4); Monocytes # (auto) 0.69 K/uL (0.11-0.59); Monocytes % (auto) 7.8 %; Neutrophils # (auto) 6.15 K/uL (1.4-6.5); Neutrophils % (auto) 69.3 %; Platelet Count 436 K/uL (130-400); RDW Standard Deviation 47.7 fL (36.4-46.3); Red Blood Count 4.71 M/uL (4.2-5.4); White Blood Count 8.88 K/uL (4.8-10.8)
[2020-05-18 16:52] LABS: Albumin Level 3.1 gm/dl (3.4-5.0); BUN Creatinine Ratio 7.9 (10-20); Calcium 8.7 mg/dl (8.5-10.1); Creatinine Clr Calc Pharmacy 123.4 ml/min; Est GFR (African American) 105.1; Est GFR (Non-African American) 90.7; Potassium 3.8 mmol/L (3.5-5.1)
[2020-05-18 16:55] LABS: Albumin Globulin Ratio 0.8 (0.9-2); Bilirubin,Total 0.8 mg/dl (0.2-1); Total Protein 7.1 gm/dl (6.4-8.2)
--- NOTE | 2020-05-18 17:07 | Ultrasound Report ---
US gallbladder HISTORY: 30 years-old Female Pt c/o RUQ abd pain acute right upper quadrant abdominal pain COMPARISON: Right upper quadrant abdominal ultrasound 01/04/2020 TECHNIQUE: Multiple real-time sonographic images of the abdominal right upper quadrant were obtained assessing grayscale appearance and color flow FINDINGS: Unremarkable appearance of the visualized pancreas. The liver is unremarkable without mass. Mild gall bladder distention with cholelithiasis. No gallbladder wall thickening or pericholecystic fluid. Unab le to assess sonographic Bennett's sign secondary to patient recently receiving pain medication. Commo n bile duct is mildly dilated at 8 mm. No obstructing stone or lesion identified. Unremarkable appear ance of the right kidney without hydronephrosis. IMPRESSION: 1. Cholelithiasis with gallbladder distention. There is no associated wall thickening or pericholecys tic fluid to suggest acute cholecystitis. 2. Mild dilation of the common bile duct. Correlate with laboratory analysis to exclude obstruction. ACT 112: Negative or not required by law. The above report was generated using voice recognition software. It may contain grammatical, syntax o r spelling errors. Electronically signed by: Luis Alberto Ramsey M.D. 05/18/2020 5:06 PM
[2020-05-18] MEDS ORDERED: IOVERSOL 100ml IV ONE (17:27)
--- NOTE | 2020-05-18 17:28 | Emergency Department Note ---
History of Present Illness General Chief complaint: Abdominal Pain Stated complaint: AB PAIN Time Seen by Provider: 05/18/20 16:11 Source: patient, EMS, RN notes reviewed and old records reviewed Mode of arrival: EMS Limitations: no limitations History of Present Illness Provider complaint: Right upper quadrant abd pain Onset (ago): hour(s) 2 Location: abdomen Radiation: back Severity: severe Pain Consistency: + constant and + colicky Maximum Pain Intensity: 8 Current Pain Intensity: 8 Quality: + aching Relieved By: + immobilization Exacerbated By: + eating Associated symptoms: + nausea/vomiting; no chest pain, no fever/chills, no headaches and no shortness of breath Treatments prior to arrival: none This is a 30-year-old female who recently had a baby approximately 2 weeks ago. Patient reports she had a gallbladder attack back in January. Due to her the decision was made not to remove the gallbladder. The patient reports this morning she was eating eggs and toast when approximately 2 hours later she developed severe right upper quadrant abdominal pain. She has been unable to get the pain under control and then she began having nausea and vomiting. She did not take anything for the pain which she describes as aching. She reports eating makes the pain worse however immobilization makes the pain better. Home Medications Home Medications Medication Instructions Recorded Confirmed Type prenat.vits,ronak,[id number]-[id number] 1 tab PO DAILY 09/16/19 05/18/20 History Allergies Allergy/AdvReac Type Severity Reaction Status Date / Time No Known Allergies Allergy Verified 05/03/20 08:33 Past Med/Surg History Medical History surgically induced Anemia Encounter for anatomic survey Encounter for gynecological examination without abnormal finding Evaluate anatomy not seen on prior sonogram H/O Migraine Sickle cell trait Spotting affecting Varicella vaccine Surgical History H/O oral surgery Family History Aunt Diabetes Grandmother (Maternal) Heart disease Hypertension Mother Hypertension Fibroids Gestational diabetes Father Hx of migraines Social History Smoking Status: Never smoker Hx Alcohol Use: No Hx Substance Use: No Preferred Language: Iraqi Communication Ability: Effective Trimmer And Reinforcer Required: No Beliefs That Will Affect Care: None marital status: marital status details: Stanley Ruibo (29) [phone] Current Living Situation: Spouse and Family Current Living Situation Comment: and 3 yo daughter current occupational status: employed 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 Feels Safe at Home: Yes Safety Concerns: Feels Safe At This Time Review of Systems A total of 10 systems reviewed and were otherwise negative Physical Exam Vital Signs Vital Signs - 24 hr 05/18/20 18:20 05/18/20 18:30 05/18/20 18:31 Pulse Rate 50 L 50 L 48 L Pulse Rate from SpO2 Sensor 50 L 50 L 48 L Respiratory Rate 25 H 25 H 24 Blood Pressure 158/82 H Blood Pressure Mean 100 Pulse Oximetry 98 98 98 Oxygen Delivery Method Room Air Room Air Room Air 05/18/20 18:40 05/18/20 19:54 05/18/20 20:00 Pulse Rate 50 L 54 L 49 L Pulse Rate from SpO2 Sensor 50 L 50 L Respiratory Rate 24 14 20 Blood Pressure 138/75 Blood Pressure Mean 80 Pulse Oximetry 98 98 Oxygen Delivery Method Room Air Room Air Room Air 05/18/20 20:01 05/18/20 20:10 05/18/20 20:20 Pulse Rate 54 L 51 L 47 L Pulse Rate from SpO2 Sensor 53 L 53 L 48 L Respiratory Rate 20 25 H 20 Blood Pressure Blood Pressure Mean Pulse Oximetry 98 100 99 Oxygen Delivery Method Room Air Room Air Room Air 05/18/20 20:30 05/18/20 20:31 05/18/20 20:40 Pulse Rate 48 L 47 L 49 L Pulse Rate from SpO2 Sensor 48 L 47 L 50 L Respiratory Rate 22 19 13 Blood Pressure 149/88 H Blood Pressure Mean 102 Pulse Oximetry 99 99 100 Oxygen Delivery Method Room Air Room Air Room Air 05/18/20 20:50 05/18/20 21:00 05/18/20 21:01 Pulse Rate 55 L 52 L 54 L Pulse Rate from SpO2 Sensor 55 L 51 L 54 L Respiratory Rate 19 20 21 Blood Pressure 140/99 Blood Pressure Mean 122 Pulse Oximetry 99 98 99 Oxygen Delivery Method Room Air Room Air Room Air VITAL SIGNS - Vital signs and nursing notes were reviewed. GENERAL - 30-year-old female appearing stated age who is in no acute distress. Communicates well with provider and answers questions appropriately. SKIN - Without rashes. HEAD - NC/AT. EYES - PERRL with EOMI bilaterally. Sclera anicteric. Palpebral conjunctiva pink and moist with no injection noted. EARS - No deformities of external structures noted on gross examination bilaterally. No pain elicited with palpation of the tragus bilaterally. External auditory canals without discharge or otorrhea. Tympanic membranes pearly small without retraction or bulging. No fluid or purulent material visualized behind the TM. Handle of malleus, umbo, cone of light, pars tensa/flaccid all easily visualized. NOSE - Midline and without cyanosis. No epistaxis or purulent drainage noted. Septum midline without deviation or septal hematoma noted. MOUTH/OROPHARYNX - Without perioral cyanosis. Buccal mucosa pink and moist and without leukoplakia. Tongue midline with equal elevation of palate bilaterally. No tonsillar hypertrophy, erythema, or exudates noted. dentition noted. NECK - Neck with FROM. Supple to palpation. lymphadenopathy noted. No nuchal rigidity. LUNGS - Chest wall symmetric without accessory muscle use, intercostals retractions, or central cyanosis. Normal vesicular breath sounds CTA B/L. No wheezes, rales, or rhonchi appreciated. CARDIAC - RRR with S1/S2. No murmur, rubs, or gallops appreciated. ABDOMEN - Abdominal contour without pulsations or visible masses. BS normoactive all four quadrants. tender to RUQ, No palpable masses, hepatosplenomegaly, or ascites noted. EXTREMITIES - No clubbing or peripheral cyanosis. No pretibial edema present. +3/5 radial, posterior tibial, and dorsalis pedis pulses palpated throughout. +5/5 strength noted in UE/LE bilaterally. NEUROLOGIC - Cranial nerves II through XII grossly intact. Sensory intact to light touch throughout. Patellar reflexes +2/4. PSYCH - A&Ox3 and cooperates fully with examiner. Pt is very pleasant and interacts well with examiner. Course Administered Medications Ertapenem 1,000 mg/ Sodium (Chloride) 60 mls @ 100 mls/hr IV Q24H DUGLAS Stop: 05/29/20 00:29 Last Infusion: 05/19/20 01:45 Dose: 0 mls/hr Documented by: [id number] Admin: 05/19/20 00:50 Dose: 100 mls/hr Documented by: [id number] Prenat Multivit/Bastian/Iron/Folic Ac ( Vitamin 1 Tab) 1 tab PO QAM DUGLAS Stop: 06/18/20 08:59 Last Admin: 05/19/20 08:21 Dose: Not Given Documented by: [id number] Discontinued Medications Hydromorphone HCl (Hydromorphone Inj 1 Mg/Ml Syringe) 1 mg IV Q15M PRN PRN Reason: Pain Stop: 06/01/20 16:15 Last Admin: 05/18/20 16:34 Dose: 1 mg Documented by: [id number] Sodium Chloride (Nss 1000ml) 1,000 mls @ 999 mls/hr IV .Q1H1M ONE Stop: 05/18/20 17:16 Last Infusion: 05/18/20 17:59 Dose: 0 mls/hr Documented by: [id number] Admin: 05/18/20 16:32 Dose: 999 mls/hr Documented by: [id number] Cefoxitin Sodium (Mefoxin) 2,000 mg in 60 mls @ 100 mls/hr IV NOW STA Stop: 05/18/20 20:07 Last Infusion: 05/18/20 20:36 Dose: 0 mls/hr Documented by: [id number] Admin: 05/18/20 19:53 Dose: 100 mls/hr Documented by: [id number] Sodium Chloride (Nss 1000ml) 1,000 mls @ 125 mls/hr IV .Q8H DUGLAS Stop: 05/19/20 10:00 Last Infusion: 05/19/20 18:10 Dose: 0 mls/hr Documented by: [id number] Admin: 05/19/20 10:08 Dose: 125 mls/hr Documented by: [id number] Infusion: 05/19/20 09:55 Dose: 125 mls/hr Documented by: [id number] Admin: 05/19/20 01:55 Dose: 125 mls/hr Documented by: [id number] Potassium Chloride (K Kevin / Wtr) 10 meq in 100 mls @ 50 mls/hr IV Q1H DUGLAS Stop: 05/19/20 10:14 Last Infusion: 05/19/20 12:42 Dose: 0 mls/hr Documented by: [id number] Admin: 05/19/20 10:08 Dose: 50 mls/hr Documented by: [id number] Infusion: 05/19/20 10:05 Dose: 50 mls/hr Documented by: [id number] Infusion: 05/19/20 08:37 Dose: 50 mls/hr Documented by: [id number] Admin: 05/19/20 08:21 Dose: 100 mls/hr Documented by: [id number] Ioversol (Ioversol 100ml) 93 ml IV ONCE ONE Stop: 05/18/20 17:28 Last Admin: 05/18/20 17:27 Dose: 93 ml Documented by: [id number] Ketorolac Tromethamine (Ketorolac 30 Mg/Ml Vial) 30 mg IV NOW STA Stop: 05/18/20 16:17 Last Admin: 05/18/20 16:35 Dose: 30 mg Documented by: [id number] Ondansetron HCl (Ondansetron Inj 2 Mg/Ml 2 Ml Vial) 4 mg IV NOW STA Stop: 05/18/20 16:17 Last Admin: 05/18/20 16:32 Dose: 4 mg Documented by: [id number] Medical Decision Making Differential Diagnosis Appendicitis, ovarian cyst, ovarian torsion, ectopic , TOA, PID, infe ctions, diverticulitis, UTI, obstruction, mesenteric ischemia, aortic pathology, inflammatory bowel disease, renal colic, PUD, pancreatitis, biliary pathology, hernia, volvulus, constipation, as well as other pathologies. Medical Records Attestation: I reviewed the patient's medical records. Home Medications Current Medication List: was personally reviewed by me Laboratory Data Attestation: I reviewed the patient's lab results. Result diagrams: 05/19/20 05:22 05/19/20 05:22 Lab Results 05/18/20 05/18/20 05/18/20 Range/Units 16:06 16:06 19:55 WBC 8.88 (4.8-10.8) K/uL RBC 4.71 (4.2-5.4) M/uL Hgb 13.5 (12.0-16.0) g/dL Hct 40.9 (37-47) % MCV 86.8 (80-100) fL MCH 28.7 (25-34) pg MCHC 33.0 (32-36) g/dL RDW Std Deviation 47.7 H (36.4-46.3) fL RDW Coeff of Savanah 15.0 H (11.5-14.5) % Plt Count 436 H (130-400) K/uL MPV 11.4 H (7.4-10.4) fL Immature Gran % (Auto) 0.1 % Neut % (Auto) 69.3 % Lymph % (Auto) 21.6 % Chester % (Auto) 7.8 % Eos % (Auto) 0.9 % Baso % (Auto) 0.3 % Neut # (Auto) 6.15 (1.4-6.5) K/uL Lymph # (Auto) 1.92 (1.2-3.4) K/uL Chester # (Auto) 0.69 H (0.11-0.59) K/uL Eos # (Auto) 0.08 (0-0.5) K/uL Baso # (Auto) 0.03 (0-0.2) K/uL Immature Gran # (Auto) 0.01 (0.00-0.02) K/uL Sodium 144 (136-145) mmol/L Potassium 3.8 (3.5-5.1) mmol/L Chloride 112 H (98-107) mmol/L Carbon Dioxide 25 (21-32) mmol/L Anion Gap 7.0 (3-11) BUN 7 (7-18) mg/dl Creatinine 0.86 (0.6-1.2) mg/dl Est Cr Clr Drug Dosing 123.4 ml/min Est GFR ( Amer) 105.1 Est GFR (Non-Af Amer) 90.7 BUN/Creatinine Ratio 7.9 L (10-20) Glucose 86 (70-99) mg/dl Calcium 8.7 (8.5-10.1) mg/dl Total Bilirubin 0.8 (0.2-1) mg/dl AST 98 H (15-37) U/L ALT 57 (12-78) U/L Alkaline Phosphatase 222 H (45-117) U/L Total Protein 7.1 (6.4-8.2) gm/dl Albumin 3.1 L (3.4-5.0) gm/dl Globulin 4.0 (2.5-4.0) gm/dl Albumin/Globulin Ratio 0.8 L (0.9-2) Lipase 450 H (73-393) U/L Urine Color Dark Yellow Urine Appearance Clear (Clear) Urine pH 7.5 (4.5-7.5) Ur Specific Qulin > 1.045 H (1.000-1.030) Urine Protein Negative (Negative) Urine Glucose (UA) Negative (Negative) Urine Ketones Negative (Negative) Urine Blood 3+ H (Negative) Urine Nitrite Negative (Negative) Urine Bilirubin Negative (Negative) Urine Urobilinogen Negative (Negative) Ur Leukocyte Esterase 1+ H (Negative) Urine WBC (Auto) 10-30 H (0-5) /hpf Urine RBC (Auto) >30 H (0-4) /hpf U Hyaline Cast (Auto) 1-5 (0-5) /lpf U Epithel Cells (Auto) 20-30 H (0-5) /lpf Urine Bacteria (Auto) 1+ H (Negative) Urine Yeast Not Reportable Imaging Data Radiologist's Impression: [place], [place] [phone] Ultrasound Report Patient: LAUREN RUBIO Admit Date: 05/18/20 MR#: [id number] Address1: [address] [place] [address] Acct ID:[id number] Address2: Date: 1990 [facility] Zip: [place] [address] Age: 30 Location: ED Sex: F Room/Bed: Att Phy: Diagnosis: AB PAIN Maisha Phy: Guadalupe Jones MD Service Date: 05/18/20 [facility] Phy: Interpreting Phy: eSbas Ramsey Admit Phy: Ordering Phy: Freddy Martines MD cc: ~ US gallbladder HISTORY: 30 years-old Female Pt c/o RUQ abd pain acute right upper quadrant abdominal pain COMPARISON: Right upper quadrant abdominal ultrasound 01/04/2020 TECHNIQUE: Multiple real-time sonographic images of the abdominal right upper quadrant were obtained assessing grayscale appearance and color flow FINDINGS: Unremarkable appearance of the visualized pancreas. The liver is unremarkable without mass. Mild gallbladder distention with cholelithiasis. No gallbladder wall thickening or pericholecystic fluid. Unable to assess sonographic Bennett's sign secondary to patient recently receiving pain medication. Common bile duct is mildly dilated at 8 mm. No obstructing stone or lesion identified. Unremarkable appearance of the right kidney without hydronephrosis. IMPRESSION: 1. Cholelithiasis with gallbladder distention. There is no associated wall thickening or pericholecystic fluid to suggest acute cholecystitis. 2. Mild dilation of the common bile duct. Correlate with laboratory analysis to exclude obstruction. ACT 112: Negative or not required by law. The above report was generated using voice recognition software. It may contain grammatical, syntax or spelling errors. Electronically signed by: Luis Alberto Ramsey M.D. 05/18/2020 5:06 PM Dictated: 05/18/201703 Transcribed: 05/18/201703 [facility] Narrative Patient was seen and evaluated as above in room C10. Review was performed of nursing notes and vital signs. I did review pertinent previous visits and patient history. After obtaining a thorough history and physical examination the above work up was performed. This is a 30-year-old female presents emergency department complaining of right upper quadrant abdominal pain. The patient does not have an elevation in her white blood cell count however her lipase is elevated. She was given Dilaudid for her pain. Repeat examination revealed improvement the patient's symptoms. Using shared medical decision making with the patient she was sent for an ultrasound of the right upper quadrant. I am concerned the patient may have choledocholithiasis therefore she was sent for CAT scan of the abdomen pelvis. While in the department, I personally reevaluated the patient several times and each time the patient was found to be resting comfortably. The patient was educated upon management, educated upon todays findings/results, educated upon importance of follow up from today's visit, educated upon symptoms in which to return, had questions answered prior to discharge, verbalized understanding, and was discharged home in good condition. An order was placed for continuous cardiac monitoring. The monitor shows a rate of 75 with Normal SInus rhythm. The patient was evaluated during the global COVID-19 pandemic, and that diagnosis was suspected/considered upon their initial presentation. Their evaluation, treatment and testing was consistent with current guidelines for patients who present with complaints or symptoms that may be related to COVID- 19. Impression & Plan Abdominal pain, Cholelithiasis, Choledocholithiasis Discharge Plan Visit Data Chief Complaint: Abdominal Pain Stated Complaint: AB PAIN ED Provider: Freddy Martines Discharge Problem: Abdominal pain, Cholelithiasis, Choledocholithiasis Patient Disposition: Home - Self-Care Discharge Instructions Interventions: ED Discharge Assessment Last Done: 05/18/20 23:53 Discharge Problem: Abdominal pain Qualifiers: Abdominal location: unspecified location Qualified Code(s): R10.9 - Unspecified abdominal pain Cholelithiasis Qualifiers: Cholelithiasis location: other site Biliary obstruction: without biliary obstruction Qualified Code(s): K80.80 - Other cholelithiasis without obstruction
--- NOTE | 2020-05-18 19:24 | CT Scan Report ---
ABDOMEN AND PELVIS CT WITH IV CONTRAST CT DOSE: 1022.90 mGy.cm HISTORY: Acute right upper quadrant abdominal pain Pt c/o RUQ abd pain TECHNIQUE: Multiaxial CT images of the abdomen and pelvis were performed following the IV administrat ion of 93 cc of Optiray 320, A dose lowering technique was utilized adhering to the principles of AL ELSA. COMPARISON STUDY: Right upper quadrant abdominal ultrasound of same day FINDINGS: Lung bases are generally clear. No pneumatosis or pneumoperitoneum. The imaged inferior cardiac chamb ers are unremarkable. Pancreatic duct measures the upper limits of normal at 2.7 mm. No obstructing p ancreatic lesion. No intrahepatic biliary ductal dilation. Distended gallbladder with trace perichole cystic edema. The previously described cholelithiasis better appreciated on the ultrasound study of . Spleen and liver are unremarkable. Patency of the hepatic and portal veins. Unremarkable adr enal glands. Kidneys are within normal limits. Partial distention of the urinary bladder. Enlarged heterogeneous m orphology of the uterus. No adnexal mass lesion. Aorta and IVC are unremarkable. There is no adenopat hy. No bowel obstruction or bowel wall thickening. Mild fecal retention. Visualized appendix appears vivi nflamed. Diastases recti with small fat filled periumbilical hernia. IMPRESSION: 1. Distended gallbladder with trace pericholecystic edema. Previously noted cholelithiasis is not def initively seen by CT. Findings are suspicious for developing acute cholecystitis in appropriate clini ronak setting. 2. No bowel obstruction or bowel wall thickening. Normal appendix. 3. Enlarged heterogeneous morphology of the uterus. ACT 112: Negative or not required by law. The above report was generated using voice recognition software. It may contain grammatical, syntax o r spelling errors. Electronically signed by: Luis Alberto Ramsey M.D. 05/18/2020 7:23 PM
[2020-05-18] MEDS ORDERED: cefOXitin 2,000 MG/60 ML BAG IV STA (19:32)
[2020-05-18 20:12] LABS: Appearance Urine Clear (Clear); Bacteria Urine Automated 1+ (Negative); Bilirubin Urine Negative (Negative); Blood Urine 3+ (Negative); Color Urine Dark Yellow; Epithelial Cell Urine Auto 20-30 /lpf (0-5); Glucose Urine UA Negative (Negative); Ketones Urine Negative (Negative); Leukocyte Esterase Urine 1+ (Negative); Nitrite Urine Negative (Negative); Protein Urine Negative (Negative); RBC Urine Automated >30 /hpf (0-4); Specific Gravity Urine > 1.045 (1.000-1.030); Urobilinogen Urine Negative (Negative); pH Urine 7.5 (4.5-7.5)
[2020-05-18] MEDS ORDERED: ONDANSETRON INJ 2 MG/ML 2 ML VIAL IV PRN (23:32)
[2020-05-18] MEDS ORDERED: ACETAMINOPHEN 325 MG TAB PO PRN (23:32)
[2020-05-18] MEDS ORDERED: HYDROmorphone INJ 0.5 MG/0.5 ML SYR IV PRN (23:32)
--- NOTE | 2020-05-18 23:32 | History & Physical Report ---
Date of Service May 18, 2020 Assessment & Plan (1) Biliary colic: biliary colic that is recurrent. NPO p MN in case of procedure including ERCP (depending on MRCP results) or lap maria luisa. Currently pain is resolved. Imaging so far reveals galltones but there is no clear evidence for acute cholelithiasis. She has no pain and is hemodynamically stable and afebrile. Will cont antibiotic coverage for now until formal evaluations by Cardiology take place. (2) Cholelithiasis: Present on imaging performed today. MRCP ordered for overnight. (3) state: (4) Sickle cell trait: (5) DVT prophylaxis: SCDs and ambulation. Avoiding chemoprophylaxis in setting of possible upcoming procedures. Full Code Dispo-to floor. Plan for home when medically discharge. Lizzie Bunch DO [facility] Hospitalist History of Present Illness Chief Complaint: RUQ pain Primary Care Provider: Guadalupe Higginbotham MD 30 yo healthy female with an attack of biliary colic around noon today. Pain radiated from her RUQ to her LUQ and ultimately resolved. She denies and recent fevers or chills. She did vomit twice today, and did require dilaudid in the ER today. She feel better right now. She denies bowel or bladder changes, denies chest pain, SOB and otherwise feels well. She reports having an episode of biliary colic in January 2020, which went without treatment except for supportive care because she was . She has now delivered her baby. In the Er she was started on abx, treated with Dilaudid and Zofran. GI was notified and requested an MRCP to be performed overnight. General Surgery (Dr. Crawford) also spoke with the Er physician and noted he would see her in the morning. She appeared overall very comfortable and is hemodynamically stable and afebrile. Allergies Allergy/AdvReac Type Severity Reaction Status Date / Time No Known Allergies Allergy Verified 05/03/20 08:33 Home Medications Home Medications Medication Instructions Recorded Confirmed Type prenat.vits,ronak,stj-[id number] 1 tab PO DAILY 09/16/19 05/18/20 History Past Med/Surg History Medical History surgically induced Anemia Encounter for anatomic survey Encounter for gynecological examination without abnormal finding Evaluate anatomy not seen on prior sonogram H/O Migraine Sickle cell trait Spotting affecting Varicella vaccine Surgical History H/O oral surgery Family History Aunt Diabetes Grandmother (Maternal) Heart disease Hypertension Mother Hypertension Fibroids Gestational diabetes Father Hx of migraines Social History Smoking Status: Never smoker Hx Alcohol Use: No Hx Substance Use: No Preferred Language: Thai Communication Ability: Effective Beliefs That Will Affect Care: None marital status: marital status details: Stanley Gill (29) [phone] Current Living Situation: Family Current Living Situation Comment: and 3 yo daughter current occupational status: employed 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 Feels Safe at Home: Yes Review of Systems Review of Systems: All systems reviewed & are unremarkable except as noted in Subjective Physical Exam Physical Exam: CONSTITUTIONAL: WNWD, vitals as above, generally well- appearing EYES: pupils are round and equal bilaterally, normal conjunctivae, no scleral icterus ENT: external ear and nose normal, oropharynx clear, no TM abnormality, no maxillary or ethmoid sinus tenderness NECK: trachea midline RESPIRATORY: clear to auscultation bilaterally, no crackles, rales or wheezes, normal respiratory effort CARDIOVASCULAR: regular rate and rhythm, S1 and 2 heard without murmurs, gallops or rubs, no JVD, no peripheral edema GASTROINTESTINAL: soft, nontender, no guarding MUSCULOSKELETAL: strength 5/5 throughout, head is normocephalic and atraumatic, neck supple, normal palpation of chest wall without tenderness SKIN: warm and dry NEUROLOGIC: No facial palsy, no dysarthria. Touch, pain and proprioception normal. CN 2-12 grossly intact, normal cognition, normal speech, no gross focal deficits. PSYCHIATRIC: alert cooperative and oriented to person, place and time. Results & Data Results & Data ([facility]) Vital Signs (Past 12 Hours) Vital Signs Temp Pulse Pulse Resp BP BP Pulse Ox 05/18/20 22:58 47 L 20 135/81 99 05/18/20 21:01 54 L 21 99 08/14/20 21:00 52 L 20 140/99 98 05/18/20 20:50 55 L 19 99 05/18/20 20:40 49 L 13 100 05/18/20 20:31 47 L 19 99 05/18/20 20:30 48 L 22 149/88 H 99 05/18/20 20:20 47 L 20 99 05/18/20 20:10 51 L 25 H 100 05/18/20 20:01 54 L 20 98 05/18/20 20:00 49 L 20 138/75 98 05/18/20 19:54 54 L 14 05/18/20 18:40 50 L 24 98 05/18/20 18:31 48 L 24 98 05/18/20 18:30 50 L 25 H 158/82 H 98 05/18/20 18:20 50 L 25 H 98 05/18/20 18:10 51 L 24 98 05/18/20 18:01 58 L 14 96 05/18/20 18:00 49 L 18 137/80 97 05/18/20 17:50 48 L 17 98 05/18/20 17:40 50 L 13 99 05/18/20 17:31 49 L 21 99 05/18/20 17:30 49 L 23 135/73 98 05/18/20 17:23 49 L 13 99 05/18/20 16:31 55 L 19 05/18/20 16:30 55 L 21 123/65 05/18/20 16:20 53 L 21 05/18/20 16:10 57 L 24 05/18/20 16:06 36.6 C 54 L 51 L 18 129/73 129/73 100 05/18/20 16:02 54 L 20 129/73 Laboratory Results Short CBC 05/18/20 Range/Units 16:06 WBC 8.88 (4.8-10.8) K/uL Hgb 13.5 (12.0-16.0) g/dL Hct 40.9 (37-47) % Plt Count 436 H (130-400) K/uL BMP 05/18/20 16:06 Sodium 144 Potassium 3.8 Chloride 112 H Carbon Dioxide 25 BUN 7 Creatinine 0.86 Glucose 86 Calcium 8.7 Liver Function 05/18/20 Range/Units 16:06 Total Bilirubin 0.8 (0.2-1) mg/dl AST 98 H (15-37) U/L ALT 57 (12-78) U/L Alkaline Phosphatase 222 H (45-117) U/L Albumin 3.1 L (3.4-5.0) gm/dl Urine 05/18/20 Range/Units 19:55 Urine Color Dark Yellow Urine Appearance Clear (Clear) Urine pH 7.5 (4.5-7.5) Ur Specific [place] > 1.045 H (1.000-1.030) Urine Protein Negative (Negative) Urine Glucose (UA) Negative (Negative) Diagnostic Findings US gallbladder HISTORY: 30 years-old Female Pt c/o RUQ abd pain acute right upper quadrant abdominal pain COMPARISON: Right upper quadrant abdominal ultrasound 01/04/2020 TECHNIQUE: Multiple real-time sonographic images of the abdominal right upper quadrant were obtained assessing grayscale appearance and color flow FINDINGS: Unremarkable appearance of the visualized pancreas. The liver is unremarkable without mass. Mild gallbladder distention with cholelithiasis. No gallbladder wall thickening or pericholecystic fluid. Unable to assess sonographic Bennett's sign secondary to patient recently receiving pain medication. Common bile duct is mildly dilated at 8 mm. No obstructing stone or lesion identified. Unremarkable appearance of the right kidney without hydronephrosis. IMPRESSION: 1. Cholelithiasis with gallbladder distention. There is no associated wall thickening or pericholecystic fluid to suggest acute cholecystitis. 2. Mild dilation of the common bile duct. Correlate with laboratory analysis to exclude obstruction. ABDOMEN AND PELVIS CT WITH IV CONTRAST CT DOSE: 1022.90 mGy.cm HISTORY: Acute right upper quadrant abdominal pain Pt c/o RUQ abd pain TECHNIQUE: Multiaxial CT images of the abdomen and pelvis were performed following the IV administration of 93 cc of Optiray 320, A dose lowering technique was utilized adhering to the principles of ALARA. COMPARISON STUDY: Right upper quadrant abdominal ultrasound of same day FINDINGS: Lung bases are generally clear. No pneumatosis or pneumoperitoneum. The imaged inferior cardiac chambers are unremarkable. Pancreatic duct measures the upper limits of normal at 2.7 mm. No obstructing pancreatic lesion. No intrahepatic biliary ductal dilation. Distended gallbladder with trace pericholecystic edema. The previously described cholelithiasis better appreciated on the ultrasound study of same day. Spleen and liver are unremarkable. Patency of the hepatic and portal veins. Unremarkable adrenal glands. Kidneys are within normal limits. Partial distention of the urinary bladder. Enlarged heterogeneous morphology of the uterus. No adnexal mass lesion. Aorta and IVC are unremarkable. There is no adenopathy. No bowel obstruction or bowel wall thickening. Mild fecal retention. Visualized appendix appears noninflamed. Diastases recti with small fat filled periumbilical hernia. IMPRESSION: 1. Distended gallbladder with trace pericholecystic edema. Previously noted cholelithiasis is not definitively seen by CT. Findings are suspicious for developing acute cholecystitis in appropriate clinical setting. 2. No bowel obstruction or bowel wall thickening. Normal appendix. 3. Enlarged heterogeneous morphology of the uterus. Code Status & VTE Plan VTE Prophylaxis Plan VTE Prophylaxis will be ordered: Yes
[2020-05-19] MEDS ORDERED: ACETAMINOPHEN 325 MG TAB PO PRN (00:11)
[2020-05-19] MEDS: ERTAPENEM SODIUM 1,000 MG in SODIUM CHLORIDE 0.9% 50 ML IV SCH (00:50)
[2020-05-19] MEDS: SODIUM CHLORIDE 0.9% 1000ML 1,000 ML IV SCH ×2 (01:55→10:08)
[2020-05-19 06:24] LABS: Hematocrit (blood only) 36.2 % (37-47); Hemoglobin 11.6 g/dL (12.0-16.0); Mean Corpuscular Volume 87.4 fL (80-100); Mean Platelet Volume 11.2 fL (7.4-10.4); Platelet Count 379 K/uL (130-400); RDW Coefficient of Variation 15.1 % (11.5-14.5); RDW Standard Deviation 48.3 fL (36.4-46.3); Red Blood Count 4.14 M/uL (4.2-5.4); White Blood Count 5.12 K/uL (4.8-10.8)
[2020-05-19 06:44] LABS: Calcium 7.6 mg/dl (8.5-10.1); Creatinine Clr Calc Pharmacy 135.2 ml/min; Est GFR (African American) 116.4; Est GFR (Non-African American) 100.5; Potassium 3.3 mmol/L (3.5-5.1)
--- NOTE | 2020-05-19 08:06 | Hospitalist Progress Note ---
Date of Service May 19, 2020 Assessment & Plan (1) Biliary colic: Symptomatic cholelithiasis - biliary colic that is recurrent. Currently pain is resolved. Imaging so far reveals galltones but there is no clear evidence for acute cholelithiasis. She has no pain and is hemodynamically stable and afebrile. MRCP poor quality, however LFTs elevated from yesterday GI and general surgery eval, plan for ERCP and lap maria luisa tomorrow 05/20 Continue antibiotic coverage NPO after MN (2) Cholelithiasis: Symptomatic cholelithiasis - present on imaging performed on admission. MRCP obtained, however poor quality, LFTs elevated though from yesterday (3) state: (4) Sickle cell trait: (5) DVT prophylaxis: SCDs and ambulation. Avoiding chemoprophylaxis in setting of possible upcoming procedures. Full Code Dispo-to floor. Plan for home when medically discharge. Admission and Anticipated Discharge Date Admission Date: May 18, 2020 Subjective Patient is currently lying in bed, in no acute distress. She denies any fevers, chills, chest pain, shortness of breath, abdominal pain, nausea or vomiting. She is currently comfortable, but she develops, pain that is at right upper abdominal quadrant radiating to her back, when she eats. GI and surgery eval. MRCP obtained however poor quality. LFTs elevated today from yesterday, plan for ERCP and lap maria luisa tomorrow. Review of Systems Review of Systems: All systems reviewed & are unremarkable except as noted in HPI & below Constitutional: no fever and no chills Respiratory: no cough and no dyspnea Cardiovascular: no chest pain and no palpitations Gastrointestinal: no abdominal pain, no nausea and no vomiting Physical Exam Physical Exam: CONSTITUTIONAL: Young female, lying in bed, in no acute distress, WNWD, vitals as above EYES: PERRL, EOMI, normal conjunctivae, no scleral icterus ENT: external ear and nose normal, oropharynx clear NECK: supple, trachea midline RESPIRATORY: clear to auscultation bilaterally, no crackles, rales or wheezes, normal respiratory effort CARDIOVASCULAR: regular rate and rhythm, S1 and 2 heard without murmurs, gallops or rubs, no JVD, no peripheral edema GASTROINTESTINAL: soft, nontender, no guarding, posit. bowel sounds MUSCULOSKELETAL: strength 5/5 throughout, head is normocephalic and atraumatic, neck supple, normal palpation of chest wall without tenderness SKIN: warm and dry NEUROLOGIC: No facial palsy, no dysarthria. Touch, pain and proprioception normal. CN 2-12 grossly intact, normal cognition, normal speech, no gross focal deficits. PSYCHIATRIC: alert cooperative and oriented to person, place and time. Results & Data Results & Data ([facility]) Vital Signs (Past 12 Hours) Vital Signs Temp Pulse Pulse Resp BP BP Pulse Ox 05/19/20 06:59 36.7 C 52 L 15 122/78 98 05/19/20 00:14 05/19/20 00:00 36.8 C 74 16 135/80 97 05/18/20 23:41 60 20 124/75 98 05/18/20 22:58 47 L 20 135/81 99 05/18/20 21:01 54 L 21 99 05/18/20 21:00 52 L 20 140/99 98 05/18/20 20:50 55 L 19 99 05/18/20 20:40 49 L 13 100 05/18/20 20:31 47 L 19 99 05/18/20 20:30 48 L 22 149/88 H 99 05/18/20 20:20 47 L 20 99 05/18/20 20:10 51 L 25 H 100 Pulse Ox 05/19/20 06:59 05/19/20 00:14 97 05/19/20 00:00 05/18/20 23:41 05/18/20 22:58 05/18/20 21:01 05/18/20 21:00 05/18/20 20:50 05/18/20 20:40 05/18/20 20:31 05/18/20 20:30 05/18/20 20:20 05/18/20 20:10 Laboratory Results 05/19/20 05/19/20 05/18/20 Range/Units 05:22 05:22 19:55 WBC 5.12 (4.8-10.8) K/uL RBC 4.14 L (4.2-5.4) M/uL Hgb 11.6 L (12.0-16.0) g/dL Hct 36.2 L (37-47) % MCV 87.4 (80-100) fL MCH 28.0 (25-34) pg MCHC 32.0 (32-36) g/dL RDW Std Deviation 48.3 H (36.4-46.3) fL RDW Coeff of [place] 15.1 H (11.5-14.5) % Plt Count 379 (130-400) K/uL MPV 11.2 H (7.4-10.4) fL Immature Gran % (Auto) % Neut % (Auto) % Lymph % (Auto) % [place] % (Auto) % Eos % (Auto) % Baso % (Auto) % Neut # (Auto) (1.4-6.5) K/uL Lymph # (Auto) (1.2-3.4) K/uL [place] # (Auto) (0.11-0.59) K/uL Eos # (Auto) (0-0.5) K/uL Baso # (Auto) (0-0.2) K/uL Immature Gran # (Auto) (0.00-0.02) K/uL Sodium 144 (136-145) mmol/L Potassium 3.3 L (3.5-5.1) mmol/L Chloride 113 H (98-107) mmol/L Carbon Dioxide 26 (21-32) mmol/L Anion Gap 5.0 (3-11) BUN 7 (7-18) mg/dl Creatinine 0.79 (0.6-1.2) mg/dl Est Cr Clr Drug Dosing 135.2 ml/min Est GFR ( Amer) 116.4 Est GFR (Non-Af Amer) 100.5 BUN/Creatinine Ratio 9.0 L (10-20) Glucose 72 (70-99) mg/dl Calcium 7.6 L (8.5-10.1) mg/dl Total Bilirubin (0.2-1) mg/dl AST (15-37) U/L ALT (12-78) U/L Alkaline Phosphatase (45-117) U/L Total Protein (6.4-8.2) gm/dl Albumin (3.4-5.0) gm/dl Globulin (2.5-4.0) gm/dl Albumin/Globulin Ratio (0.9-2) Lipase (73-393) U/L Urine Color Dark Yellow Urine Appearance Clear (Clear) Urine pH 7.5 (4.5-7.5) Ur Specific [place] > 1.045 H (1.000-1.030) Urine Protein Negative (Negative) Urine Glucose (UA) Negative (Negative) Urine Ketones Negative (Negative) Urine Blood 3+ H (Negative) Urine Nitrite Negative (Negative) Urine Bilirubin Negative (Negative) Urine Urobilinogen Negative (Negative) Ur Leukocyte Esterase 1+ H (Negative) Urine WBC (Auto) 10-30 H (0-5) /hpf Urine RBC (Auto) >30 H (0-4) /hpf U Hyaline Cast (Auto) 1-5 (0-5) /lpf U Epithel Cells (Auto) 20-30 H (0-5) /lpf Urine Bacteria (Auto) 1+ H (Negative) Urine Yeast Not Reportable 05/18/20 05/18/20 Range/Units 16:06 16:06 WBC 8.88 (4.8-10.8) K/uL RBC 4.71 (4.2-5.4) M/uL Hgb 13.5 (12.0-16.0) g/dL Hct 40.9 (37-47) % MCV 86.8 (80-100) fL MCH 28.7 (25-34) pg MCHC 33.0 (32-36) g/dL RDW Std Deviation 47.7 H (36.4-46.3) fL RDW Coeff of [place] 15.0 H (11.5-14.5) % Plt Count 436 H (130-400) K/uL MPV 11.4 H (7.4-10.4) fL Immature Gran % (Auto) 0.1 % Neut % (Auto) 69.3 % Lymph % (Auto) 21.6 % [place] % (Auto) 7.8 % Eos % (Auto) 0.9 % Baso % (Auto) 0.3 % Neut # (Auto) 6.15 (1.4-6.5) K/uL Lymph # (Auto) 1.92 (1.2-3.4) K/uL [place] # (Auto) 0.69 H (0.11-0.59) K/uL Eos # (Auto) 0.08 (0-0.5) K/uL Baso # (Auto) 0.03 (0-0.2) K/uL Immature Gran # (Auto) 0.01 (0.00-0.02) K/uL Sodium 144 (136-145) mmol/L Potassium 3.8 (3.5-5.1) mmol/L Chloride 112 H (98-107) mmol/L Carbon Dioxide 25 (21-32) mmol/L Anion Gap 7.0 (3-11) BUN 7 (7-18) mg/dl Creatinine 0.86 (0.6-1.2) mg/dl Est Cr Clr Drug Dosing 123.4 ml/min Est GFR ( Amer) 105.1 Est GFR (Non-Af Amer) 90.7 BUN/Creatinine Ratio 7.9 L (10-20) Glucose 86 (70-99) mg/dl Calcium 8.7 (8.5-10.1) mg/dl Total Bilirubin 0.8 (0.2-1) mg/dl AST 98 H (15-37) U/L ALT 57 (12-78) U/L Alkaline Phosphatase 222 H (45-117) U/L Total Protein 7.1 (6.4-8.2) gm/dl Albumin 3.1 L (3.4-5.0) gm/dl Globulin 4.0 (2.5-4.0) gm/dl Albumin/Globulin Ratio 0.8 L (0.9-2) Lipase 450 H (73-393) U/L Urine Color Urine Appearance (Clear) Urine pH (4.5-7.5) Ur Specific [place] (1.000-1.030) Urine Protein (Negative) Urine Glucose (UA) (Negative) Urine Ketones (Negative) Urine Blood (Negative) Urine Nitrite (Negative) Urine Bilirubin (Negative) Urine Urobilinogen (Negative) Ur Leukocyte Esterase (Negative) Urine WBC (Auto) (0-5) /hpf Urine RBC (Auto) (0-4) /hpf U Hyaline Cast (Auto) (0-5) /lpf U Epithel Cells (Auto) (0-5) /lpf Urine Bacteria (Auto) (Negative) Urine Yeast Medications Administered Current Inpatient Medications Acetaminophen (Acetaminophen 325 Mg Tab) 650 mg PO Q4H PRN PRN Reason: Pain or Fever Stop: 06/18/20 00:10 Hydromorphone HCl (Hydromorphone Inj 0.5 Mg/0.5 Ml Syr) 0.5 mg IV Q2H PRN PRN Reason: Severe Pain Stop: 06/01/20 23:31 Ertapenem 1,000 mg/ Sodium (Chloride) 60 mls @ 100 mls/hr IV Q24H [facility] Stop: 05/29/20 00:29 Last Infusion: 05/19/20 01:45 Dose: Infused Documented by: Sodium Chloride (Nss 1000ml) 1,000 mls @ 125 mls/hr IV .Q8H [facility] Stop: 05/19/20 10:00 Last Admin: 05/19/20 01:55 Dose: 125 mls/hr Documented by: Ondansetron HCl (Ondansetron Inj 2 Mg/Ml 2 Ml Vial) 4 mg IV Q8H PRN PRN Reason: n/v Stop: 06/17/20 23:44 Oxycodone/Acetaminophen (Oxycodone/Acetaminophen 5mg/325mg Tab) 1 tab PO Q4H PRN PRN Reason: Pain Stop: 06/01/20 23:31 Prenat Multivit/[place]/Iron/Folic Ac ( Vitamin 1 Tab) 1 tab PO QAM [facility] Stop: 06/18/20 08:59
--- NOTE | 2020-05-19 08:14 | Magnetic Resonance Report ---
MR MRCP CLINICAL HISTORY: Right upper quadrant abdominal pain COMPARISON STUDY: CT scan dated 05/18/2020, ultrasound dated 05/18/2020 FINDINGS: A breath-hold MRCP was performed. MIP images were acquired. The study is significantly limited from a technical standpoint. No common bile duct calculi are visualized. The gallbladder is distended with pericholecystic edema. There are multiple small gallstones. There is a nonspecific transition in diameter of the ductal system near the common hepatic/common brit e duct junction IMPRESSION: 1. Significantly limited study from a technical standpoint. 2. Cholelithiasis with pericholecystic edema 3. No common bile duct calculi identified however visualization of the ductal system is limited due t o motion artifact 4. Nonspecific change in the caliber of the bile duct near the level of the common hepatic/common brit e duct junction duct ACT 112: Negative or not required by law. Electronically signed by: Von Tao M.D. 05/19/2020 8:13 AM
[2020-05-19] MEDS: PRENATAL VITAMIN 1 TAB PO SCH (08:21)
[2020-05-19] MEDS: POTASSIUM CHLORIDE / WTR 10 MEQ/100 ML PLCT IV SCH ×2 (08:21→10:08)
[2020-05-19] MEDS ORDERED: NON-FORMULARY MEDICATION (Prenat.Vits,Cal,Min-Iron-Folic 1 TAB) PO SCH (09:00)
[2020-05-19 09:57] LABS: Albumin Level 2.6 gm/dl (3.4-5.0); Bilirubin Direct 0.8 mg/dl (0-0.2); Bilirubin,Total 1.4 mg/dl (0.2-1); Total Protein 6.2 gm/dl (6.4-8.2)
--- NOTE | 2020-05-19 10:44 | History & Physical Report ---
Date of Service May 19, 2020 Assessment & Plan (1) Cholelithiasis: NPO IV abx plan lap maria luisa after ERCP tomorrow AM consent on chart Admission and Anticipated Discharge Date Admission Date: May 18, 2020 History of Present Illness Primary Care Provider: Guadalupe Higginbotham MD This is a 30 yo healthy female with symptomatic cholelithiasis first diagnosed in January while . She had an attack of biliary colic yesterday and is admitted also with likely CBD stones with elevated LFTs. Her pain yesterday radiated from her RUQ and back. She denies and recent fevers or chills. She did have associated nausea and vomiting. She denies chest pain, SOB and otherwise feels well. She reports having an episode of biliary colic in January 2020, which went without treatment except for supportive care because she was . She has now delivered her baby. GI was consulted and requested an MRCP which was poor quality but LFTs bumped this AM. Allergies Allergy/AdvReac Type Severity Reaction Status Date / Time No Known Allergies Allergy Verified 05/03/20 08:33 Home Medications Home Medications Medication Instructions Recorded Confirmed Type prenat.vits,ronak,gtv-zjuc-iplpc 1 tab PO DAILY 09/16/19 05/18/20 History Past Med/Surg History Medical History surgically induced Anemia Encounter for anatomic survey Encounter for gynecological examination without abnormal finding Evaluate anatomy not seen on prior sonogram H/O Migraine Sickle cell trait Spotting affecting Varicella vaccine Surgical History H/O oral surgery Family History Aunt Diabetes Grandmother (Maternal) Heart disease Hypertension Mother Hypertension Fibroids Gestational diabetes Father Hx of migraines Social History Smoking Status: Never smoker Hx Alcohol Use: No Hx Substance Use: No Preferred Language: Swiss Communication Ability: Effective 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 Beliefs That Will Affect Care: None marital status: marital status details: Stanley Gill (29) [phone] Current Living Situation: Spouse and Family Current Living Situation Comment: and 3 yo daughter current occupational status: employed 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 Feels Safe at Home: Yes Safety Concerns: Feels Safe At This Time Review of Systems Constitutional: + anorexia; no fever and no chills Eyes: no problem reported Ear, Nose, Mouth, Throat: no problem reported Respiratory: no cough and no dyspnea Cardiovascular: no chest pain Gastrointestinal: + abdominal pain, + nausea and + vomiting; no change in bowel habits Genitourinary: no dysuria Musculoskeletal: + back pain Integumentary: no yellowing of the skin and no problem reported Neurologic: no problem reported Psychiatric: no problem reported Endocrine: no problem reported Physical Exam Constitutional: WD/WN, vitals as above Eyes: sclerae not anicteric Neck: trachea midline Respiratory: normal respiratory effort, lungs clear to auscultation Cardiovascular: RRR, no murmur, no edema Gastrointestinal (Abdomen): Inspection/Auscultation: abdomen normal to inspect ion, + abdomen distended and normal bowel sounds Percussion/Palpation: + abdomen tender; no guarding Musculoskeletal: Head/Neck/Chest: normocephalic and head atraumatic Skin: no rashes, warm and dry no jaundice Neurologic: moves all extremities Psychiatric: Orientation: alert and oriented x 3 Results & Data Results & Data ([facility]) Vital Signs (Past 12 Hours) Vital Signs Temp Pulse Resp BP Pulse Ox Pulse Ox 05/19/20 06:59 36.7 C 52 L 15 122/78 98 05/19/20 00:14 97 05/19/20 00:00 36.8 C 74 16 135/80 97 05/18/20 23:41 60 20 124/75 98 05/18/20 22:58 47 L 20 135/81 99 Diagnostic Findings MR MRCP CLINICAL HISTORY: Right upper quadrant abdominal pain COMPARISON STUDY: CT scan dated 05/18/2020, ultrasound dated 05/18/2020 FINDINGS: A breath-hold MRCP was performed. MIP images were acquired. The study is significantly limited from a technical standpoint. No common bile duct calculi are visualized. The gallbladder is distended with pericholecystic edema. There are multiple small gallstones. There is a nonspecific transition in diameter of the ductal system near the common hepatic/common bile duct junction IMPRESSION: 1. Significantly limited study from a technical standpoint. 2. Cholelithiasis with pericholecystic edema 3. No common bile duct calculi identified however visualization of the ductal system is limited due to motion artifact 4. Nonspecific change in the caliber of the bile duct near the level of the common hepatic/common bile duct junction duct Code Status & VTE Plan VTE Prophylaxis Plan VTE Prophylaxis will be ordered: Yes
--- NOTE | 2020-05-19 16:24 | Gastrointestinal Consultation ---
Date of Consultation May 19, 2020 Assessment & Plan (1) Choledocholithiasis: Dilated CBD with up trending LFTs most suggestive of choledocholithiasis. Plan for ERCP tomorrow combined with Lap Loren. (2) Elevated LFTs: History of Present Illness Attending Physician: Sheldon Jamison MD History of Present Illness 30 years old female patient admitted with abdominal pain, found to have dilated CBD and gallstones with possible cholecystitis. Denies any fever or chills, no nausea or vomiting. Pain was sharp, RUQ, nonradiating. Allergies Allergy/AdvReac Type Severity Reaction Status Date / Time No Known Allergies Allergy Verified 05/03/20 08:33 Home Medications Home Medications Medication Instructions Recorded Confirmed Type prenat.vits,ronak,[id number] 1 tab PO DAILY 09/16/19 05/18/20 History Patient History Medical History surgically induced Anemia Encounter for anatomic survey Encounter for gynecological examination without abnormal finding Evaluate anatomy not seen on prior sonogram H/O Migraine Sickle cell trait Spotting affecting Varicella vaccine Surgical History H/O oral surgery Family History Aunt Diabetes Grandmother (Maternal) Heart disease Hypertension Mother Hypertension Fibroids Gestational diabetes Father Hx of migraines Social History Smoking Status: Never smoker Hx Alcohol Use: No Hx Substance Use: No Preferred Language: Bulgarian Communication Ability: Effective Paradi Operator Required: No Beliefs That Will Affect Care: None marital status: marital status details: Stanley Gill [phone] Current Living Situation: Spouse and Family Current Living Situation Comment: and 3 yo daughter current occupational status: employed 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 Feels Safe at Home: Yes Safety Concerns: Feels Safe At This Time Review of Systems Constitutional: no fever, no chills, no fatigue and no weight loss Eyes: no eye pain and no worsening vision Ear, Nose, Mouth, Throat: no tinnitus, no dizziness, no nasal discharge and no epistaxis Respiratory: no cough, no dyspnea, no dyspnea on exertion and no wheezing Cardiovascular: no chest pain, no orthopnea, no palpitations and no edema Gastrointestinal: as per Subjective / HPI Genitourinary: no dysuria, no urinary frequency, no urinary incontinence and no hematuria Musculoskeletal: no stiffness and no myalgia Neurologic: no localized weakness, no paralysis, no tremor(s) and no headache(s) Endocrine: no polydipsia and no polyuria Hematologic / Lymphatic: no easy bleeding and no night sweats Physical Exam Constitutional: + well hydrated, cooperative and comfortable Eyes: PERRL, conjunctivae normal, anicteric sclerae ENMT: external ear and nose normal, oropharynx normal Neck: normal visual inspection and trachea midline Respiratory: normal respiratory effort, lungs clear to auscultation Auscultation: no wheezes Cardiovascular: RRR, no murmur, no edema Gastrointestinal (Abdomen): normal bowel sounds, soft, nontender, no hepatosplenomegaly Musculoskeletal: no cyanosis or clubbing, extremities motor strength 5/5 Skin: no rashes, warm and dry Neurologic: awake; no focal motor deficits Motor/Sensory: no tremor Results & Data ([facility]) Vital Signs (Past 12 Hours) Vital Signs Temp Pulse Resp BP Pulse Ox 05/19/20 16:01 36.9 C 48 L 18 118/77 99 05/19/20 06:59 36.7 C 52 L 15 122/78 98 Laboratory Results Laboratory Results - last 24 hr 05/18/20 05/19/20 05/19/20 19:55 05:22 05:22 WBC 5.12 RBC 4.14 L Hgb 11.6 L Hct 36.2 L MCV 87.4 MCH 28.0 MCHC 32.0 RDW Std Deviation 48.3 H RDW Coeff of Savanah 15.1 H Plt Count 379 MPV 11.2 H Sodium 144 Potassium 3.3 L Chloride 113 H Carbon Dioxide 26 Anion Gap 5.0 BUN 7 Creatinine 0.79 Est Cr Clr Drug Dosing 135.2 Est GFR ( Amer) 116.4 Est GFR (Non-Af Amer) 100.5 BUN/Creatinine Ratio 9.0 L Glucose 72 Calcium 7.6 L Total Bilirubin Direct Bilirubin AST ALT Alkaline Phosphatase Total Protein Albumin Urine Color Dark Yellow Urine Appearance Clear Urine pH 7.5 Ur Specific [place] > 1.045 H Urine Protein Negative Urine Glucose (UA) Negative Urine Ketones Negative Urine Blood 3+ H Urine Nitrite Negative Urine Bilirubin Negative Urine Urobilinogen Negative Ur Leukocyte Esterase 1+ H Urine WBC (Auto) 10-30 H Urine RBC (Auto) >30 H U Hyaline Cast (Auto) 1-5 U Epithel Cells (Auto) 20-30 H Urine Bacteria (Auto) 1+ H Urine Yeast Not Reportable COVID-19 Eval Order SARS-CoV-2, RNA, NAAT 05/19/20 05/19/20 05/19/20 05:22 12:50 12:50 WBC RBC Hgb Hct MCV MCH MCHC RDW Std Deviation RDW Coeff of Savanah Plt Count MPV Sodium Potassium Chloride Carbon Dioxide Anion Gap BUN Creatinine Est Cr Clr Drug Dosing Est GFR ( Amer) Est GFR (Non-Af Amer) BUN/Creatinine Ratio Glucose Calcium Total Bilirubin 1.4 H D Direct Bilirubin 0.8 H AST 492 H ALT 268 H Alkaline Phosphatase 315 H Total Protein 6.2 L Albumin 2.6 L Urine Color Urine Appearance Urine pH Ur Specific [place] Urine Protein Urine Glucose (UA) Urine Ketones Urine Blood Urine Nitrite Urine Bilirubin Urine Urobilinogen Ur Leukocyte Esterase Urine WBC (Auto) Urine RBC (Auto) U Hyaline Cast (Auto) U Epithel Cells (Auto) Urine Bacteria (Auto) Urine Yeast COVID-19 Eval [facility] SARS-CoV-2, RNA, NAAT NEGATIVE
[2020-05-19] MEDS ORDERED: POTASSIUM CHLORIDE 20 MEQ TABCR PO STA ×2 (21:43→23:50)
[2020-05-19 23:38] LABS: BUN Creatinine Ratio 8.2 (10-20); Calcium 8.1 mg/dl (8.5-10.1); Creatinine Clr Calc Pharmacy 138.7 ml/min; Est GFR (African American) 120.1; Est GFR (Non-African American) 103.6; Magnesium 1.8 mg/dl (1.8-2.4); Potassium 3.4 mmol/L (3.5-5.1)
[2020-05-19 23:49] LABS: Thyroid Stimulating Hormone 0.805 uIu/ml (0.300-4.500)
[2020-05-19] MEDS ORDERED: MAGNESIUM SULFATE / D5W 1 GM/100 ML BAG IV ONE (23:50)
[2020-05-20] MEDS: ERTAPENEM SODIUM 1,000 MG in SODIUM CHLORIDE 0.9% 50 ML IV SCH ×2 (00:32→23:34)
[2020-05-20] MEDS: D5W AND 1/2NSS + 20MEQ KCL 20 MEQ/1,000 ML BAG IV SCH ×2 (00:33→17:20)
[2020-05-20] MEDS ORDERED: CEFAZOLIN 2000MG 2,000 MG/15 ML SYR IV SCH (06:00)
[2020-05-20] MEDS ORDERED: fentaNYL citrate 100 MCG/2 ML VIAL IV PRN (07:12)
[2020-05-20] MEDS ORDERED: ONDANSETRON INJ 2 MG/ML 2 ML VIAL IV PRN (07:12)
[2020-05-20] MEDS ORDERED: ePHEDrine sulfate 50 MG/ML AMP IV PRN (07:12)
[2020-05-20] MEDS ORDERED: HYDROmorphone INJ 1 MG/ML SYRINGE IV PRN (07:12)
[2020-05-20] MEDS ORDERED: ATROPINE SULFATE 0.1 MG/ML 10ML SYR IV PRN (07:12)
--- NOTE | 2020-05-20 07:13 | Surgery Progress Note ---
Date of Service May 20, 2020 Assessment & Plan (1) Choledocholithiasis: ERCP Present on Admission?: Yes (2) Cholelithiasis: to OR for lap maria luisa this AM Admission and Anticipated Discharge Date Admission Date: May 18, 2020 Subjective doing well Review of Systems Constitutional: no fever and no chills Respiratory: no cough Cardiovascular: no chest pain Gastrointestinal: + abdominal pain Genitourinary: no dysuria Physical Exam Constitutional: well developed and well nourished Respiratory: normal respiratory effort, lungs clear to auscultation Cardiovascular: RRR, no murmur, no edema Gastrointestinal (Abdomen): Percussion/Palpation: + abdomen tender; no guarding and abdomen not rigid Musculoskeletal: Head/Neck/Chest: normocephalic and head atraumatic Results & Data ([facility]) Vital Signs (Past 12 Hours) Vital Signs Temp Pulse Resp BP Pulse Ox Pulse Ox 05/20/20 06:50 36.7 C 49 L 16 137/84 99 05/20/20 06:33 36.7 C 54 L 16 151/82 H 99 05/20/20 00:11 96 05/19/20 23:34 36.8 C 46 L 16 133/83 100 05/19/20 21:40 46 L 126/84 (1) Cholelithiasis Biliary obstruction: without biliary obstruction Cholelithiasis location: other site Qualified Code(s): K80.80 - Other cholelithiasis without obstruction
--- NOTE | 2020-05-20 07:15 | Anesthesiology Consultation ---
Date of Service May 20, 2020 Assessment & Plan (1) Encounter for pre-operative examination: Chart Review Chart Review: Acceptable Risk for Surgery and Patient NOT seen in Pre Admission Testing Consults Requested none History Surgery Operation Date: 05/20/20 07:30 Proposed Procedures p Laparoscopic Cholecystectomy - Roberto Crawford MD Height/Weight Height: 5 ft 10 in Weight: 102.8 kg Allergies Allergy/AdvReac Type Severity Reaction Status Date / Time No Known Allergies Allergy Verified 05/03/20 08:33 Medications Home Medications Medication Instructions Recorded Confirmed Last Taken prenat.vits,ronak,axe-wimp-vbsub 1 tab PO DAILY 09/16/19 05/18/20 05/02/20 20:00 Active Medications Generic Name Dose Route Start Last Admin Trade Name Freq PRN Reason Stop Dose Admin Ertapenem 1,000 mg/ Sodium 60 mls @ 100 mls/hr 05/19/20 00:30 05/20/20 01:35 Chloride IV 05/29/20 00:29 Infused Q24H DUGLAS Infusion Potassium Chloride/Dextrose/Sod Cl 20 meq in 1,000 mls @ 60 mls/hr 05/19/20 23:45 05/20/20 00:33 D5w And 1/2nss + 20meq Kcl IV 06/18/20 23:44 60 mls/hr .[id number] DUGLAS Administration Prenat Multivit/Canoe Builder/Iron/Folic Ac 1 tab 05/19/20 09:00 05/19/20 08:21 Vitamin 1 Tab PO 06/18/20 08:59 Not Given QAM DUGLAS NPO Date Last Intake of Fluids: 05/19/20 Time Last Intake of Fluids: 23:59 Date Last Intake of Solids: 05/19/20 Time Last Intake of Solids: 23:59 Past Medical History Medical History surgically induced Anemia Encounter for anatomic survey Encounter for gynecological examination without abnormal finding Evaluate anatomy not seen on prior sonogram H/O Migraine Sickle cell trait Spotting affecting Varicella vaccine Exercise / Class Metabolic Activity II 4-5 Yardwork/Stairs/Walk up hill Past Family History Family History Aunt Diabetes Grandmother (Maternal) Heart disease Hypertension Mother Hypertension Fibroids Gestational diabetes Father Hx of migraines Past Surgical History Surgical History H/O oral surgery Past Anesthesia History No Hx of Anesthesia Complications and No Family Hx of Anesthesia Complications History of PONV No Hx of PONV and No Hx of Motion Sickness Social History Smoking Status: Never smoker Do You Dip or Chew Tobacco: No Hx Alcohol Use: No Hx Substance Use: No Physical Exam Vital Signs Last Vital Signs Temp 36.7 C 05/20/20 06:50 Pulse 49 L 05/20/20 06:50 Resp 16 05/20/20 06:50 BP 137/84 05/20/20 06:50 Pulse Ox 99 05/20/20 06:50 Testing Laboratory Results 05/19/20 05:22 05/19/20 22:26 Urine Color Dark Yellow 05/18/20 19:55 Urine Appearance Clear (Clear) 05/18/20 19:55 Urine pH 7.5 (4.5-7.5) 05/18/20 19:55 Ur Specific [place] > 1.045 (1.000-1.030) H 05/18/20 19:55 Urine Protein Negative (Negative) 05/18/20 19:55 Urine Glucose (UA) Negative (Negative) 05/18/20 19:55 Urine Ketones Negative (Negative) 05/18/20 19:55 Urine Nitrite Negative (Negative) 05/18/20 19:55 Ur Leukocyte Esterase 1+ (Negative) H 05/18/20 19:55 Urine WBC (Auto) 10-30 /hpf (0-5) H 05/18/20 19:55 Urine RBC (Auto) >30 /hpf (0-4) H 05/18/20 19:55 U Hyaline Cast (Auto) 1-5 /lpf (0-5) 05/18/20 19:55 U Epithel Cells (Auto) 20-30 /lpf (0-5) H 05/18/20 19:55 Urine Bacteria (Auto) 1+ (Negative) H 05/18/20 19:55 05/18/20 19:55 Urine Culture - Preliminary Urine,Clean Catch Pin-point growth present, reincubating. Electrocardiogram Date: 05/19/20 Findings: + SB @ (44) Poor data quality, interpretation may be adversely affected Marked sinus br adycardia Possible Left atrial enlargement Abnormal ECG When compared with ECG of 04-JAN-2020 21:21, Vent. rate has decreased BY 27 BPM
[2020-05-20] MEDS: PRENATAL VITAMIN 1 TAB PO SCH (07:20)
[2020-05-20] MEDS ORDERED: INDOMETHACIN 50 MG SUPP PR ONE (07:34)
--- NOTE | 2020-05-20 07:34 | Hospitalist Progress Note ---
Date of Service May 20, 2020 Assessment & Plan (1) Acute cholecystitis due to biliary calculus: -now Status post laparoscopic cholecystectomy by general surgery (05/20) -During surgery gallbladder was found to be distended with some adhesions and acute findings -We will continue antibiotic coverage (2) Choledocholithiasis: -Underwent ERCP with GI (05/20), choledocholithiasis found, removal was accomplished by biliary sphincterectomy and balloon extraction. One plastic biliary stent was placed in CBD. -Avoid ASA and NSAIDs for 5 days -Repeat ERCP in 4 weeks to remove stent (3) Cholelithiasis: - present on imaging performed on admission. MRCP obtained, however poor quality, LFTs elevated though. Therefore patient further underwent ERCP and lap maria luisa as mentioned above. (4) Elevated LFTs: (5) Biliary colic: - biliary colic that is recurrent. Pain resolved on admission. Imaging on admission revealed gallstones but there was no clear evidence for acute cholecystitis/cholelithiasis. She was hemodynamically stable and afebrile on admission - MRCP was recommended by GI -equivocal study results, however LFTs elevated from admission, therefore plan for ERCP and lap maria luisa by GI and general surgery, respectively - Patient underwent ERCP and lap maria luisa on May 20, tolerated procedures well (6) state: (7) Sickle cell trait: (8) DVT prophylaxis: SCDs and ambulation. Full Code Dispo-to floor. Plan for home when medically discharged. Admission and Anticipated Discharge Date Admission Date: May 18, 2020 Subjective Patient is lying in bed, she just came back from her ERCP and lap maria luisa procedure. She is currently somewhat drowsy but easily arousable and answers questions appropriately. Denies any significant pain, only reports some abdominal discomfort. Denies any difficulty breathing or chest pain. She is able to move all 4 extremities spontaneously and without difficulty. Denies any numbness or tingling anywhere in her extremities. Review of Systems Review of Systems: All systems reviewed & are unremarkable except as noted in HPI & below Constitutional: no fever and no chills Respiratory: no cough and no dyspnea Cardiovascular: no chest pain and no palpitations Gastrointestinal: + abdominal pain (mild - expected post-op); no nausea and no vomiting Physical Exam Physical Exam: CONSTITUTIONAL: Young female, lying in bed, in no acute distress, WNWD, vitals as above EYES: PERRL, EOMI, normal conjunctivae, no scleral icterus ENT: external ear and nose normal, oropharynx clear NECK: supple, trachea midline RESPIRATORY: clear to auscultation bilaterally, no crackles, rales or wheezes, normal respiratory effort CARDIOVASCULAR: regular rate and rhythm, S1 and 2 heard without murmurs, gallops or rubs, no JVD, no peripheral edema GASTROINTESTINAL: soft, nontender, no guarding, posit. bowel sounds MUSCULOSKELETAL: strength 5/5 throughout, head is normocephalic and atraumatic, neck supple, normal palpation of chest wall without tenderness SKIN: warm and dry NEUROLOGIC: No facial palsy, no dysarthria. Touch, pain and proprioception normal. CN 2-12 grossly intact, normal cognition, normal speech, no gross focal deficits. PSYCHIATRIC: alert cooperative and oriented to person, place and time. Results & Data Results & Data ([facility]) Vital Signs (Past 12 Hours) Vital Signs Temp Pulse Resp BP Pulse Ox Pulse Ox 05/20/20 06:50 36.7 C 49 L 16 137/84 99 05/20/20 06:33 36.7 C 54 L 16 151/82 H 99 05/20/20 00:11 96 05/19/20 23:34 36.8 C 46 L 16 133/83 100 05/19/20 21:40 46 L 126/84 Laboratory Results 05/20/20 05/20/20 05/20/20 Range/Units Unknown 10:55 10:55 WBC 6.10 (4.8-10.8) K/uL RBC 4.60 (4.2-5.4) M/uL Hgb 12.9 (12.0-16.0) g/dL Hct 40.6 (37-47) % MCV 88.3 (80-100) fL MCH 28.0 (25-34) pg MCHC 31.8 L (32-36) g/dL RDW Std Deviation 49.3 H (36.4-46.3) fL RDW Coeff of Savanah 15.3 H (11.5-14.5) % Plt Count 370 (130-400) K/uL MPV 11.3 H (7.4-10.4) fL Sodium 143 (136-145) mmol/L Potassium 4.3 D (3.5-5.1) mmol/L Chloride 112 H (98-107) mmol/L Carbon Dioxide 26 (21-32) mmol/L Anion Gap 5.0 (3-11) BUN 5 L (7-18) mg/dl Creatinine 0.91 (0.6-1.2) mg/dl Est Cr Clr Drug Dosing 117.3 ml/min Est GFR ( Amer) 98.1 Est GFR (Non-Af Amer) 84.7 BUN/Creatinine Ratio 5.3 L (10-20) Glucose 106 H (70-99) mg/dl Calcium 8.3 L (8.5-10.1) mg/dl Phosphorus 2.9 (2.5-4.9) mg/dl Magnesium 2.1 (1.8-2.4) mg/dl Total Bilirubin 0.6 D (0.2-1) mg/dl AST 174 H (15-37) U/L ALT 233 H (12-78) U/L Alkaline Phosphatase 344 H (45-117) U/L Total Protein 7.3 (6.4-8.2) gm/dl Albumin 2.7 L (3.4-5.0) gm/dl Globulin 4.6 H (2.5-4.0) gm/dl Albumin/Globulin Ratio 0.6 L (0.9-2) TSH (0.300-4.500) uIu/ml POC Ur Test NEG (NEG) 05/19/20 Range/Units 22:26 WBC (4.8-10.8) K/uL RBC (4.2-5.4) M/uL Hgb (12.0-16.0) g/dL Hct (37-47) % MCV (80-100) fL MCH (25-34) pg MCHC (32-36) g/dL RDW Std Deviation (36.4-46.3) fL RDW Coeff of Savanah (11.5-14.5) % Plt Count (130-400) K/uL MPV (7.4-10.4) fL Sodium 144 (136-145) mmol/L Potassium 3.4 L (3.5-5.1) mmol/L Chloride 113 H (98-107) mmol/L Carbon Dioxide 25 (21-32) mmol/L Anion Gap 6.0 (3-11) BUN 6 L (7-18) mg/dl Creatinine 0.77 (0.6-1.2) mg/dl Est Cr Clr Drug Dosing 138.7 ml/min Est GFR ( Amer) 120.1 Est GFR (Non-Af Amer) 103.6 BUN/Creatinine Ratio 8.2 L (10-20) Glucose 69 L (70-99) mg/dl Calcium 8.1 L (8.5-10.1) mg/dl Phosphorus (2.5-4.9) mg/dl Magnesium 1.8 (1.8-2.4) mg/dl Total Bilirubin (0.2-1) mg/dl AST (15-37) U/L ALT (12-78) U/L Alkaline Phosphatase (45-117) U/L Total Protein (6.4-8.2) gm/dl Albumin (3.4-5.0) gm/dl Globulin (2.5-4.0) gm/dl Albumin/Globulin Ratio (0.9-2) TSH 0.805 (0.300-4.500) uIu/ml POC Ur Test (NEG) Medications Administered Current Inpatient Medications Acetaminophen (Acetaminophen 325 Mg Tab) 650 mg PO Q4H PRN PRN Reason: Pain or Fever Stop: 06/18/20 00:10 Atropine Sulfate (Atropine Sulfate 0.1 Mg/Ml 10ml Syr) 0.5 mg IV Q1M PRN PRN Reason: PACU Use-HR<40 &/or Bradycardi Stop: 05/20/20 15:12 Ephedrine Sulfate (Ephedrine Sulfate 50 Mg/Ml Amp) 5 mg IV Q5M PRN PRN Reason: PACU Use Only-SBP<90 mmHg Stop: 05/20/20 15:12 Fentanyl Citrate (Fentanyl Citrate 100 Mcg/2 Ml Vial) 25 mcg IV Q5M PRN PRN Reason: PACU Use Only-Pain Stop: 05/20/20 15:13 Hydromorphone HCl (Hydromorphone Inj 0.5 Mg/0.5 Ml Syr) 0.5 mg IV Q2H PRN PRN Reason: Severe Pain Stop: 06/01/20 23:31 Hydromorphone HCl (Hydromorphone Inj 1 Mg/Ml Syringe) 0.25 mg IV Q5M PRN PRN Reason: PACU Use Only-Pain Stop: 05/20/20 15:13 Ertapenem 1,000 mg/ Sodium (Chloride) 60 mls @ 100 mls/hr IV Q24H DUGLAS Stop: 05/29/20 00:29 Last Infusion: 05/20/20 01:35 Dose: Infused Documented by: Cefazolin Sodium (Ancef 2000mg) 2,000 mg in 15 mls @ 3.75 mls/min IV PREOP DUGLAS; Protocol Stop: 05/21/20 05:59 Potassium Chloride/Dextrose/Sod Cl (D5w And 1/2nss + 20meq Kcl) 20 meq in 1,000 mls @ 60 mls/hr IV .[id number] DUGLAS Stop: 06/18/20 23:44 Last Infusion: 05/20/20 07:20 Dose: 0 mls/hr Documented by: Ondansetron HCl (Ondansetron Inj 2 Mg/Ml 2 Ml Vial) 4 mg IV Q8H PRN PRN Reason: n/v Stop: 06/17/20 23:44 Ondansetron HCl (Ondansetron Inj 2 Mg/Ml 2 Ml Vial) 4 mg IV ONCE PRN PRN Reason: PACU Use Only-Nausea/Vomiting Stop: 05/20/20 15:13 Oxycodone/Acetaminophen (Oxycodone/Acetaminophen 5mg/325mg Tab) 1 tab PO Q4H PRN PRN Reason: Pain Stop: 06/01/20 23:31 Prenat Multivit/Wendell/Iron/Folic Ac ( Vitamin 1 Tab) 1 tab PO QAM [facility] Stop: 06/18/20 08:59 Last Admin: 05/20/20 07:20 Dose: Not Given Documented by: (1) Cholelithiasis Biliary obstruction: without biliary obstruction Cholelithiasis location: other site Qualified Code(s): K80.80 - Other cholelithiasis without obstruction
[2020-05-20] MEDS ORDERED: BUPIVACAINE 0.5 % 5 MG/1 ML MPF 30ML VIAL ONE (07:37)
[2020-05-20] MEDS ORDERED: EPINEPHrine INJ 1 MG/ML AMP ONE (07:37)
--- NOTE | 2020-05-20 07:37 | History & Physical Bridge Note ---
Date of Service May 20, 2020 History & Physical Bridge Note I have examined the patient, reviewed the History & Physical and in the interval since the performance of the History & Physical I have noted the following changes of clinical significance: no changes noted
[2020-05-20] MEDS ORDERED: DEXAMETHASONE SOD INJ 4 MG/ML VIAL ONE (07:42)
[2020-05-20] MEDS ORDERED: LIDOCAINE HCL 2% 2 ML VIAL/AMP(20MG/ML) INFIL ONE (07:42)
[2020-05-20] MEDS ORDERED: fentaNYL citrate 100 MCG/2 ML VIAL ONE ×2 (07:42→09:41)
[2020-05-20] MEDS ORDERED: NEOSTIGMINE METHYLSULFATE 5 MG/5 ML SYR ONE (07:42)
[2020-05-20] MEDS ORDERED: MIDAZOLAM HCL 1 MG/ML 2ML VIAL ONE (07:42)
[2020-05-20] MEDS ORDERED: PROPOFOL IV EMULSION 10 MG/ML 20 ML VIAL IV ONE (07:42)
[2020-05-20] MEDS ORDERED: GLYCOPYRROLATE 0.2 MG/ML VIAL ONE (07:42)
[2020-05-20] MEDS ORDERED: ONDANSETRON INJ 2 MG/ML 2 ML VIAL ONE (07:42)
--- NOTE | 2020-05-20 08:52 | Operative Report ---
Post Operative Report Pre & Post Diagnosis Operation Date: 05/20/20 07:30 Pre-Op Diagnosis: Choledocholithiasis, Cholelithiasis Post-Op Diagnosis: Choledocholithiasis, Cholelithiasis I identified the patient and participated in the time-out.: Yes Procedure Operation Date: 05/20/20 07:30 Actual Procedures p Laparoscopic Cholecystectomy(Not Applicable) - MD rubio Porras Endoscopic Retrograde Cholangiopancreatography(Not Applicable) - Dasia Montoya MD Surgeon Dasia Montoya MD Client Relationship Consultant None Estimated Blood Loss 0 Findings See Below (CBD stone and sludge removed, stent placed) Specimens None Description of Procedure ERCP I attest to the content of the Intraoperative Record and any orders documented therein. Any exceptions are noted below.
[2020-05-20] MEDS ORDERED: IOVERSOL 50ml IV ONE (09:07)
--- NOTE | 2020-05-20 09:25 | Fluoroscopy Report ---
[place] ERCP biliary ductal HISTORY: 30 years-old Female ERCP cholelithiasis COMPARISON: MRCP 05/18/2020 TECHNIQUE: 13 spot fluoroscopic images of the abdominal right upper quadrant were obtained utilizing 2 minutes and 33 seconds fluoroscopy time FINDINGS: Endoscope is present. There is caliber change redemonstrated within the region of the common hepatic/ common bile duct junction. There is cannulation of the common bile duct with balloon sweep. Contrast is then seen flowing from the common bile duct into the duodenum without extravasation. No intrahepat ic biliary ductal dilation. The latter images demonstrate a few lucent filling defects within the com mon bile duct, possibly air bubbles. Last image shows deployment of a common bile duct stent which ap pears to be in satisfactory positioning. Retrograde flow contrast is noted extending into the cystic duct and gallbladder. IMPRESSION: Fluoroscopic assistance as above. Please see procedural report for further details.. ACT 112: Negative or not required by law. The above report was generated using voice recognition software. It may contain grammatical, syntax o r spelling errors. Electronically signed by: Luis Alberto Ramsey M.D. 05/20/2020 9:24 AM
--- NOTE | 2020-05-20 09:27 | GI REPORT ---
Patient Name: Maryellen Gill Procedure Date: 05/20/2020 8:11 AM Date of : 1990 Admit Type: Inpatient Age: 30 Gender: Female Attending MD: Dasia Montoya MD Procedure: ERCP Providers: Dasia Montoya MD Referring MD: Sheldon Jamison Md, Roberto Crawford MD Indications: Abnormal MRCP, Biliary dilation on Ultrasound, Elevated liver enzymes Medicines: General Anesthesia Complications: No immediate complications. Estimated Blood Loss: Estimated blood loss: none. Procedure: Pre-Anesthesia Assessment: - Prior to the procedure, a History and Physical was performed, and patient medications, allergies and sensitivities were reviewed. The patient's tolerance of previous anesthesia was reviewed. - The risks and benefits of the procedure and the sedation options and risks were discussed with the patient. All questions were answered and informed consent was obtained. - Patient identification and proposed procedure were verified prior to the procedure by the physician and the nurse. The procedure was verified in the procedure room. - Pre-procedure physical examination revealed no contraindications to sedation. After obtaining informed consent, the scope was passed under direct vision. Throughout the procedure, the patient's blood pressure, pulse, and oxygen saturations were monitored continuously. The Scope was introduced through the mouth, and advanced to the duodenum and used to inject contrast into the bile duct. The ERCP was accomplished without difficulty. The patient tolerated the procedure well. Findings: The loft rigger film was normal. The esophagus was successfully intubated under direct vision. The scope was advanced to a normal major papilla in the descending duodenum without detailed examination of the pharynx, larynx and associated structures, and upper GI tract. The upper GI tract was grossly normal. The major papilla was located in the duodenal sweep requiring long scope position for cannulation. A 0.035 inch straight standard wire was passed into the biliary tree. The Fusion OMNI sphincterotome was passed over the guidewire and the bile duct was then deeply cannulated. Contrast was injected. I personally interpreted the bile duct images. Ductal flow of contrast was adequate. Image quality was adequate. Contrast extended to the main bile duct. The main bile duct was dilated. The largest diameter was 8 mm. The common bile duct was short and measured aroun 4 cm in lingth. Biliary sphincterotomy was made with a monofilament traction (standard) sphincterotome using ERBE electrocautery. There was no post-sphincterotomy bleeding. The biliary tree was swept with a 15 mm balloon starting at the bifurcation. One stone was removed. No stones remained. Sludge was swept from the duct. One 10 Fr by 5 cm plastic biliary stent with a single external flap and a single internal flap was placed into the common bile duct. Bile flowed through the stent. The stent was in good position. Indomethacin 100 mg was given via suppository to decrease the risk of post-ERCP pancreatitis (PEP). Impression: - Choledocholithiasis was found. Complete removal was accomplished by biliary sphincterotomy and balloon extraction. - One plastic biliary stent was placed into the common bile duct. Recommendation: - Avoid aspirin and nonsteroidal anti-inflammatory medicines for 5 days. - Repeat ERCP in 4 weeks to remove stent. Dasia Montoya MD 05/20/2020 9:26:33 AM This report has been signed electronically. Note Initiated On: 05/20/2020 8:11 AM Number of Addenda: 0 I attest to the content of the Intraoperative Record and orders documented therein, exceptions below {[id number]}
--- NOTE | 2020-05-20 09:50 | Post Operative Brief Note ---
Immediate Post Op Note v1 Date of Surgery May 20, 2020 Pre & Post Diagnosis Operation Date: 05/20/20 07:30 Pre-Op Diagnosis: Choledocholithiasis, Cholelithiasis Post-Op Diagnosis: Choledocholithiasis, Cholelithiasis I identified the patient and participated in the time-out.: Yes Procedure Operation Date: 05/20/20 07:30 Actual Procedures p Laparoscopic Cholecystectomy(Not Applicable) - Roberto Crawford MD s Endoscopic Retrograde Cholangiopancreatography(Not Applicable) - Dasia Montoya MD Surgeon Roberto Crawford MD Toll Testboard Worker None Estimated Blood Loss 15 Findings Consistent with Post-Op Diagnosis
--- NOTE | 2020-05-20 10:32 | Operative Report (OR) ---
DATE OF OPERATION: 05/20/2020 PREOPERATIVE DIAGNOSES: 1. Acute cholecystitis. 2. Common bile duct stones. POSTOPERATIVE DIAGNOSES: 1. Acute cholecystitis. 2. Common bile duct stones. PROCEDURE PERFORMED: Laparoscopic cholecystectomy. SURGEON: Roberto Crawford MD. MARBLEIZING MACHINE TENDER: None. ANESTHESIA: General endotracheal with 0.5% Marcaine with epinephrine local. ESTIMATED BLOOD LOSS: 15 mL. DRAINS: None. COMPLICATIONS: None. SPECIMENS: Gallbladder sent for pathologic evaluation. INDICATION FOR PROCEDURE: This is a 30-year-old female admitted through the Emergency Department with acute onset abdominal pain and clinical findings consistent with acute cholecystitis. On her workup, she had elevated LFTs. She had an MRCP which was equivocal, but her liver function tests continue to rise. GI was consulted and they plan to do an ERCP followed by a laparoscopic cholecystectomy by me today. I talked to them about the risks of an open procedure, common bile duct injury, retained common bile duct stone, bleeding or bile leak. She understands this and wished to proceed. DESCRIPTION OF PROCEDURE: The patient was in the OR after undergoing her ERCP. She was placed in supine position. Abdomen was prepped and draped in normal sterile fashion. She previously had undergone excellent general endotracheal anesthesia. Transverse supraumbilical incision was made and dissection was taken down to identify the fascia. Two Vicryls were placed in either side of the midline of fascia. The fascia was then incised and a Solange clamp was used to enter the peritoneal cavity. Amalia trocar was inserted and good pneumoperitoneum was achieved to 15 mmHg pressure. She was placed in head up and rolled to the left. An 11 subxiphoid and two 5 lateral ports were placed in normal fashion. The gallbladder was identified, it appeared to be distended and had some adhesions with some acute findings. The fundus was grasped and retracted superiorly. The neck was grasped and retracted laterally. Peritoneal attachments were taken down with sharp and blunt dissection. Cautery was also used to open up a window. The cystic duct and cystic artery were identified and skeletonized. There was also a posterior branch of the artery, which was identified. Once the medial and lateral window were created between these structures and the critical view was seen, 3 clips were placed distally on the cystic duct, 1 proximally and the cystic duct was transected. Two clips were placed proximally in the cystic artery, 1 distally on the cystic artery and cystic artery was transected. The posterior branch was also clipped and ligated. Once this was done, electrocautery hook was used to remove the gallbladder from the gallbladder fossa. The gallbladder was brought out with an Endobag through the supraumbilical incision. Pneumoperitoneum was reestablished and the gallbladder was sent for pathologic evaluation. The abdomen was then irrigated out. There were a couple areas on the liver which were cauterized. Clips were well placed in the duct and the artery. The patient tolerated the procedure well with no complications, sent to postop recovery area for a period of observation and then will be discharged up to her room once she meets criteria. I attest to the content of the Intraoperative Record and any orders documented therein. Any exception s are noted below.
[2020-05-20 11:10] LABS: Hematocrit (blood only) 40.6 % (37-47); Hemoglobin 12.9 g/dL (12.0-16.0); Mean Corpuscular Hgb Conc 31.8 g/dL (32-36); Mean Corpuscular Volume 88.3 fL (80-100); Mean Platelet Volume 11.3 fL (7.4-10.4); Platelet Count 370 K/uL (130-400); RDW Coefficient of Variation 15.3 % (11.5-14.5); RDW Standard Deviation 49.3 fL (36.4-46.3)
[2020-05-20] MEDS: OXYCODONE/ACETAMINOPHEN 5mg/325mg TAB PO PRN ×2 (11:12→16:07)
[2020-05-20 11:38] LABS: Albumin Globulin Ratio 0.6 (0.9-2); Albumin Level 2.7 gm/dl (3.4-5.0); BUN Creatinine Ratio 5.3 (10-20); Bilirubin,Total 0.6 mg/dl (0.2-1); Calcium 8.3 mg/dl (8.5-10.1); Creatinine Clr Calc Pharmacy 117.3 ml/min; Est GFR (African American) 98.1; Est GFR (Non-African American) 84.7; Globulin 4.6 gm/dl (2.5-4.0); Magnesium 2.1 mg/dl (1.8-2.4); Phosphorus 2.9 mg/dl (2.5-4.9); Potassium 4.3 mmol/L (3.5-5.1); Total Protein 7.3 gm/dl (6.4-8.2)
--- NOTE | 2020-05-20 15:41 | Anesthesiology Progress Note ---
Date of Service May 20, 2020 Anesthesia Post Procedure Vital Signs Vital Signs: Temp Pulse Pulse Resp BP Pulse Ox Pulse Ox 05/20/20 14:09 36.6 C 54 L 16 144/91 H 98 05/20/20 12:51 36.6 C 63 18 143/101 H 98 05/20/20 11:44 36.6 C 48 L 16 155/91 H 98 05/20/20 11:14 36.7 C 49 L 16 146/91 H 100 05/20/20 10:45 36.4 C L 51 L 16 159/95 H 100 05/20/20 10:25 36.3 C L 50 L 16 156/94 H 98 05/20/20 10:15 45 L 16 142/86 H 98 05/20/20 10:05 50 L 16 135/81 98 05/20/20 09:58 36.2 C L 66 12 144/85 H 98 05/20/20 06:50 36.7 C 49 L 16 137/84 99 05/20/20 06:33 36.7 C 54 L 16 151/82 H 99 05/20/20 00:11 96 05/19/20 23:34 36.8 C 46 L 16 133/83 100 05/19/20 21:40 46 L 126/84 05/19/20 16:01 36.9 C 48 L 18 118/77 99 Pain Intensity Abdomen: Pain Intensity: 6 Transfer of Care Handoff Completed per policy Notes Mental Status: alert / awake / arousable and participated in evaluation Patient Amnestic to Procedure: Yes Nausea / Vomiting: adequately controlled Pain: adequately controlled Airway Patency, RR, SpO2: stable & adequate BP & HR: stable & adequate Hydration State: stable & adequate Anesthetic Complications: no major complications apparent and Pt Satisfied with anesthetic care
--- NOTE | 2020-05-20 23:39 | Electrocardiogram Report ---
Test Reason : Blood Pressure : / mmHG Vent. Rate : 044 BPM Atrial Rate : 044 BPM P-R Int : 120 ms QRS Dur : 074 ms QT Int : 512 ms P-R-T Axes : 053 037 046 degrees QTc Int : 437 ms Poor data quality, interpretation may be adversely affected Marked sinus bradycardia Possible Left atrial enlargement Abnormal ECG When compared with ECG of 04-JAN-2020 21:21, Vent. rate has decreased BY 27 BPM Confirmed by Pardeep Salazar ([id number]) on 05/20/2020 11:39:41 PM Referred By: REFERRED SELF Confirmed By:Pardeep Salazar
[2020-05-21 07:28] LABS: Hematocrit (blood only) 38.5 % (37-47); Hemoglobin 12.4 g/dL (12.0-16.0); Mean Corpuscular Hgb Conc 32.2 g/dL (32-36); Mean Corpuscular Volume 86.9 fL (80-100); Mean Platelet Volume 10.9 fL (7.4-10.4); Platelet Count 366 K/uL (130-400); RDW Coefficient of Variation 15.2 % (11.5-14.5); RDW Standard Deviation 47.7 fL (36.4-46.3); Red Blood Count 4.43 M/uL (4.2-5.4); White Blood Count 6.43 K/uL (4.8-10.8)
[2020-05-21] MEDS: PRENATAL VITAMIN 1 TAB PO SCH (07:36)
[2020-05-21] MEDS: OXYCODONE/ACETAMINOPHEN 5mg/325mg TAB PO PRN (07:36)
[2020-05-21 07:51] LABS: Albumin Globulin Ratio 0.6 (0.9-2); Albumin Level 2.5 gm/dl (3.4-5.0); BUN Creatinine Ratio 5.9 (10-20); Bilirubin,Total 0.5 mg/dl (0.2-1); Calcium 8.2 mg/dl (8.5-10.1); Est GFR (African American) 100.8; Globulin 4.1 gm/dl (2.5-4.0); Potassium 3.6 mmol/L (3.5-5.1); Total Protein 6.6 gm/dl (6.4-8.2)
--- NOTE | 2020-05-21 09:08 | Hospitalist Progress Note ---
Date of Service May 21, 2020 Assessment & Plan (1) Acute cholecystitis due to biliary calculus: -now Status post laparoscopic cholecystectomy by general surgery (05/20) -During surgery gallbladder was found to be distended with some adhesions and acute findings -continued antibiotic coverage while inpt, per surgery, no antibiotic needed after discharge -Per surgery, patient can be discharged, follow-up with general surgery in 2 weeks (2) Choledocholithiasis: -Underwent ERCP with GI (05/20), choledocholithiasis found, removal was accomplished by biliary sphincterectomy and balloon extraction. One plastic biliary stent was placed in CBD. -Avoid ASA and NSAIDs for 5 days -Repeat ERCP in 4 weeks to remove stent (3) Cholelithiasis: - present on imaging performed on admission. MRCP obtained, however poor quality, LFTs elevated though. Therefore patient further underwent ERCP and lap maria luisa as mentioned above. (4) Elevated LFTs: (5) Biliary colic: - biliary colic that is recurrent. Pain resolved on admission. Imaging on admission revealed gallstones but there was no clear evidence for acute cholecystitis/cholelithiasis. She was hemodynamically stable and afebrile on admission - MRCP was recommended by GI -equivocal study results, however LFTs elevated from admission, therefore plan for ERCP and lap maria luisa by GI and general surgery, respectively - Patient underwent ERCP and lap maria luisa on May 20, tolerated procedures well (6) state: (7) Sickle cell trait: (8) DVT prophylaxis: SCDs and ambulation. Full Code Dispo-to floor. Plan for home when medically discharged. Admission and Anticipated Discharge Date Admission Date: May 18, 2020 Subjective No acute events overnight. Patient underwent ERCP and lap maria luisa yesterday. Overall she looks comfortable, she has only very mild abdominal pain. She is passing gas but did not have a bowel movement in past couple of days. Denies any fevers, chills, chest pain, shortness of breath, nausea or vomiting. LFts trending down. Tolerating PO. Patient seen by GI and general surgery today, okay to go home. She will need to follow-up with GI for stent removal, and follow-up with general surgery. Review of Systems Review of Systems: All systems reviewed & are unremarkable except as noted in HPI & below Constitutional: no fever and no chills Respiratory: no cough and no dyspnea Cardiovascular: no chest pain and no palpitations Gastrointestinal: no abdominal pain, no nausea and no vomiting Physical Exam Physical Exam: CONSTITUTIONAL: Young female, sitting up in bed, in no acute distress, WN/WD, vitals as above EYES: PERRL, EOMI, normal conjunctivae, no scleral icterus ENT: external ear and nose normal, oropharynx clear NECK: supple, trachea midline RESPIRATORY: clear to auscultation bilaterally, no crackles, rales or wheezes, normal respiratory effort CARDIOVASCULAR: regular rate and rhythm, S1 and 2 heard without murmurs, gallops or rubs, no JVD, no peripheral edema GASTROINTESTINAL: abdomen soft, nontender, no guarding, posit. bowel sounds MUSCULOSKELETAL: strength 5/5 throughout, head is normocephalic and atraumatic, neck supple, normal palpation of chest wall without tenderness SKIN: warm and dry NEUROLOGIC: No facial palsy, no dysarthria. Touch, pain and proprioception normal. CN 2-12 grossly intact, normal cognition, normal speech, no gross focal deficits. PSYCHIATRIC: alert cooperative and oriented to person, place and time. Results & Data Results & Data ([facility]) Vital Signs (Past 12 Hours) Vital Signs Temp Pulse Resp BP Pulse Ox Pulse Ox 05/21/20 07:18 36.8 C 51 L 17 147/86 H 97 05/21/20 03:03 36.7 C 59 L 16 137/86 97 05/21/20 01:23 96 05/20/20 23:08 36.5 C 51 L 16 136/81 96 Laboratory Results 05/21/20 05/21/20 05/20/20 Range/Units 07:16 07:16 10:55 WBC 6.43 (4.8-10.8) K/uL RBC 4.43 (4.2-5.4) M/uL Hgb 12.4 (12.0-16.0) g/dL Hct 38.5 (37-47) % MCV 86.9 (80-100) fL MCH 28.0 (25-34) pg MCHC 32.2 (32-36) g/dL RDW Std Deviation 47.7 H (36.4-46.3) fL RDW Coeff of Savanah 15.2 H (11.5-14.5) % Plt Count 366 (130-400) K/uL MPV 10.9 H (7.4-10.4) fL Sodium 142 143 (136-145) mmol/L Potassium 3.6 D 4.3 D (3.5-5.1) mmol/L Chloride 109 H 112 H (98-107) mmol/L Carbon Dioxide 28 26 (21-32) mmol/L Anion Gap 5.0 5.0 (3-11) BUN 5 L 5 L (7-18) mg/dl Creatinine 0.89 0.91 (0.6-1.2) mg/dl Est Cr Clr Drug Dosing 120.0 117.3 ml/min Est GFR ( Amer) 100.8 98.1 Est GFR (Non-Af Amer) 87.0 84.7 BUN/Creatinine Ratio 5.9 L 5.3 L (10-20) Glucose 82 106 H (70-99) mg/dl Calcium 8.2 L 8.3 L (8.5-10.1) mg/dl Phosphorus 2.9 (2.5-4.9) mg/dl Magnesium 2.1 (1.8-2.4) mg/dl Total Bilirubin 0.5 0.6 D (0.2-1) mg/dl AST 66 H 174 H (15-37) U/L ALT 146 H 233 H (12-78) U/L Alkaline Phosphatase 284 H 344 H (45-117) U/L Total Protein 6.6 7.3 (6.4-8.2) gm/dl Albumin 2.5 L 2.7 L (3.4-5.0) gm/dl Globulin 4.1 H 4.6 H (2.5-4.0) gm/dl Albumin/Globulin Ratio 0.6 L 0.6 L (0.9-2) 16/ Range/Units 10:55 WBC 6.10 (4.8-10.8) K/uL RBC 4.60 (4.2-5.4) M/uL Hgb 12.9 (12.0-16.0) g/dL Hct 40.6 (37-47) % MCV 88.3 (80-100) fL MCH 28.0 (25-34) pg MCHC 31.8 L (32-36) g/dL RDW Std Deviation 49.3 H (36.4-46.3) fL RDW Coeff of Savanah 15.3 H (11.5-14.5) % Plt Count 370 (130-400) K/uL MPV 11.3 H (7.4-10.4) fL Sodium (136-145) mmol/L Potassium (3.5-5.1) mmol/L Chloride (98-107) mmol/L Carbon Dioxide (21-32) mmol/L Anion Gap (3-11) BUN (7-18) mg/dl Creatinine (0.6-1.2) mg/dl Est Cr Clr Drug Dosing ml/min Est GFR ( Amer) Est GFR (Non-Af Amer) BUN/Creatinine Ratio (10-20) Glucose (70-99) mg/dl Calcium (8.5-10.1) mg/dl Phosphorus (2.5-4.9) mg/dl Magnesium (1.8-2.4) mg/dl Total Bilirubin (0.2-1) mg/dl AST (15-37) U/L ALT (12-78) U/L Alkaline Phosphatase (45-117) U/L Total Protein (6.4-8.2) gm/dl Albumin (3.4-5.0) gm/dl Globulin (2.5-4.0) gm/dl Albumin/Globulin Ratio (0.9-2) Medications Administered Current Inpatient Medications Acetaminophen (Acetaminophen 325 Mg Tab) 650 mg PO Q4H PRN PRN Reason: Pain or Fever Stop: 06/18/20 00:10 Last Admin: 05/20/20 23:36 Dose: 650 mg Documented by: Hydromorphone HCl (Hydromorphone Inj 0.5 Mg/0.5 Ml Syr) 0.5 mg IV Q2H PRN PRN Reason: Severe Pain Stop: 06/01/20 23:31 Ertapenem 1,000 mg/ Sodium (Chloride) 60 mls @ 100 mls/hr IV Q24H DUGLAS Stop: 05/29/20 00:29 Last Infusion: 05/21/20 00:11 Dose: Infused Documented by: Potassium Chloride/Dextrose/Sod Cl (D5w And 1/2nss + 20meq Kcl) 20 meq in 1,000 mls @ 60 mls/hr IV .[id number] DUGLAS Stop: 06/18/20 23:44 Last Infusion: 05/20/20 17:20 Dose: Infused Documented by: Ondansetron HCl (Ondansetron Inj 2 Mg/Ml 2 Ml Vial) 4 mg IV Q8H PRN PRN Reason: n/v Stop: 06/17/20 23:44 Oxycodone/Acetaminophen (Oxycodone/Acetaminophen 5mg/325mg Tab) 1 tab PO Q4H PRN PRN Reason: Pain Stop: 06/01/20 23:31 Last Admin: 05/21/20 07:36 Dose: 1 tab Documented by: Prenat Multivit/Quality Assurance Project Manager/Iron/Folic Ac ( Vitamin 1 Tab) 1 tab PO QAM [facility] Stop: 06/18/20 08:59 Last Admin: 05/21/20 07:36 Dose: 1 tab Documented by: (1) Cholelithiasis Biliary obstruction: without biliary obstruction Cholelithiasis location: other site Qualified Code(s): K80.80 - Other cholelithiasis without obstruction
--- NOTE | 2020-05-21 10:55 | Gastroenterology Progress Note ---
Date of Service May 21, 2020 Assessment & Plan (1) Choledocholithiasis: 30 year old female S/P CCY and ERCP w/ stone removal and stent placement, clinically feeling well, LFTs trending down No NSAIDs x 1 week ERCP for stent removal in 4 weeks No GI contraindication to diet or discharge GI sign off Admission and Anticipated Discharge Date Admission Date: May 18, 2020 Supervising Physician Co-Signing Physician Notes I have seen and examined the patient with MICHAEL Mott whose note reflects our findings and plan. LFTs improving. s/p ERCP and cholecystectomy. Would advance diet. Repeat ERCP in 4 weeks shceduled. Call with questions. Subjective S/P ERCP and CCY feeling well LFts trending down Tolerating PO Wants to go home Review of Systems Constitutional: no fever and no chills Respiratory: no cough and no dyspnea Cardiovascular: no chest pain and no dyspnea Gastrointestinal: no abdominal pain, no diarrhea/loose stools, no blood in stools and no melena Physical Exam Constitutional: well developed and well nourished; no acute distress Neck: trachea midline, no thyromegaly Respiratory: normal respiratory effort Cardiovascular: Rate/Rhythm: regular rate Gastrointestinal (Abdomen): normal bowel sounds, soft, nontender, no hepatosplenomegaly Results & Data ([facility]) Vital Signs (Past 12 Hours) Vital Signs Temp Pulse Resp BP Pulse Ox Pulse Ox 05/21/20 07:18 36.8 C 51 L 17 147/86 H 97 05/21/20 03:03 36.7 C 59 L 16 137/86 97 05/21/20 01:23 96 05/20/20 23:08 36.5 C 51 L 16 136/81 96
[2020-05-21] MEDS ORDERED: POLYETHYLENE (MIRALAX) 17 GM PACK PO PRN (11:07)
[2020-05-21 12:06] VITALS: BP 123/73; PULSE 58; TEMP 98.4; O2SAT 99
--- NOTE | 2020-05-21 13:40 | Discharge Summary ---
Date of Service May 21, 2020 Admission HPI Per Admitting Provider This is a 30 yo healthy female with symptomatic cholelithiasis first diagnosed in January while . She had an attack of biliary colic yesterday and is admitted also with likely CBD stones with elevated LFTs. Her pain yesterday radiated from her RUQ and back. She denies and recent fevers or chills. She did have associated nausea and vomiting. She denies chest pain, SOB and otherwise feels well. She reports having an episode of biliary colic in January 2020, which went without treatment except for supportive care because she was . She has now delivered her baby. GI was consulted and requested an MRCP which was poor quality but LFTs bumped this AM. Admission Exam Per Admitting Provider CONSTITUTIONAL: WNWD, vitals as above, generally well-appearing EYES: pupils are round and equal bilaterally, normal conjunctivae, no scleral icterus ENT: external ear and nose normal, oropharynx clear, no TM abnormality, no maxillary or ethmoid sinus tenderness NECK: trachea midline RESPIRATORY: clear to auscultation bilaterally, no crackles, rales or wheezes, normal respiratory effort CARDIOVASCULAR: regular rate and rhythm, S1 and 2 heard without murmurs, gallops or rubs, no JVD, no peripheral edema GASTROINTESTINAL: soft, nontender, no guarding MUSCULOSKELETAL: strength 5/5 throughout, head is normocephalic and atraumatic, neck supple, normal palpation of chest wall without tenderness SKIN: warm and dry NEUROLOGIC: No facial palsy, no dysarthria. Touch, pain and proprioception normal. CN 2-12 grossly intact, normal cognition, normal speech, no gross focal deficits. PSYCHIATRIC: alert cooperative and oriented to person, place and time. Principal Diagnosis Acute cholecystitis Choledocholithiasis Discharge Exam CONSTITUTIONAL: Young female, sitting up in bed, in no acute distress, WN/WD, vitals as above EYES: PERRL, EOMI, normal conjunctivae, no scleral icterus ENT: external ear and nose normal, oropharynx clear NECK: supple, trachea midline RESPIRATORY: clear to auscultation bilaterally, no crackles, rales or wheezes, normal respiratory effort CARDIOVASCULAR: regular rate and rhythm, S1 and 2 heard without murmurs, gallops or rubs, no JVD, no peripheral edema GASTROINTESTINAL: abdomen soft, nontender, no guarding, posit. bowel sounds MUSCULOSKELETAL: strength 5/5 throughout, head is normocephalic and atraumatic, neck supple, normal palpation of chest wall without tenderness SKIN: warm and dry NEUROLOGIC: No facial palsy, no dysarthria. Touch, pain and proprioception normal. CN 2-12 grossly intact, normal cognition, normal speech, no gross focal deficits. PSYCHIATRIC: alert cooperative and oriented to person, place and time. Discharge Data Allergies Allergy/AdvReac Type Severity Reaction Status Date / Time No Known Allergies Allergy Verified 05/03/20 08:33 Consultations 05/18/20 19:39 ED Decision to Admit Stat 05/18/20 19:40 Consult General Surgery Stat 05/18/20 20:38 Consult Gastroenterology Stat Procedures Performed Operation Date: 05/20/20 07:30 Actual Procedures p Laparoscopic Cholecystectomy(Not Applicable) - Roberto Crawford MD s Endoscopic Retrograde Cholangiopancreatography(Not Applicable) - Dasia branch MD Ordered Studies 05/18/20 16:16 CT abd pelvis IV con only Stat IMPRESSION: 1. Distended gallbladder with trace pericholecystic edema. Previously noted cholelithiasis is not definitively seen by CT. Findings are suspicious for developing acute cholecystitis in appropriate clinical setting. 2. No bowel obstruction or bowel wall thickening. Normal appendix. 3. Enlarged heterogeneous morphology of the uterus. US gallbladder Stat IMPRESSION: 1. Cholelithiasis with gallbladder distention. There is no associated wall thickening or pericholecystic fluid to suggest acute cholecystitis. 2. Mild dilation of the common bile duct. Correlate with laboratory analysis to exclude obstruction. 05/18/20 20:38 MR MRCP Stat IMPRESSION: 1. Significantly limited study from a technical standpoint. 2. Cholelithiasis with pericholecystic edema 3. No common bile duct calculi identified however visualization of the ductal system is limited due to motion artifact 4. Nonspecific change in the caliber of the bile duct near the level of the common hepatic/common bile duct junction duct 05/20/20 07:00 FL ERCP biliary ductal Routine Impression: - Choledocholithiasis was found. Complete removal was accomplished by biliary sphincterotomy and balloon extraction. - One plastic biliary stent was placed into the common bile duct. Recommendation: - Avoid aspirin and nonsteroidal anti-inflammatory medicines for 5 days. - Repeat ERCP in 4 weeks to remove stent. Hospital Course (1) Acute cholecystitis due to biliary calculus: -now Status post laparoscopic cholecystectomy by general surgery (05/20) -During surgery gallbladder was found to be distended with some adhesions and acute findings -continued antibiotic coverage while inpt, per surgery, no antibiotic needed after discharge -Per surgery, patient can be discharged, follow-up with general surgery in 2 weeks (2) Choledocholithiasis: -Underwent ERCP with GI (05/20), choledocholithiasis found, removal was accomplished by biliary sphincterectomy and balloon extraction. One plastic biliary stent was placed in CBD. -Avoid ASA and NSAIDs for 5 days -Repeat ERCP in 4 weeks to remove stent (3) Cholelithiasis: - present on imaging performed on admission. MRCP obtained, however poor quality, LFTs elevated though. Therefore patient further underwent ERCP and lap maria luisa as mentioned above. (4) Elevated LFTs: (5) Biliary colic: - biliary colic that is recurrent. Pain resolved on admission. Imaging on admission revealed gallstones but there was no clear evidence for acute cholecystitis/cholelithiasis. She was hemodynamically stable and afebrile on admission - MRCP was recommended by GI -equivocal study results, however LFTs elevated from admission, therefore plan for ERCP and lap maria luisa by GI and general surgery, respectively - Patient underwent ERCP and lap maria luisa on May 20, tolerated procedures well (6) state: (7) Sickle cell trait: (8) DVT prophylaxis: SCDs and ambulation. Full Code Dispo-to floor. Plan for discharge home today. Total Time Total Time Spent Total Time Spent (In Minutes): 50 Total Time Includes: Examination of the Patient, Discharge Planning, Medication Reconciliation and Communication With Other Providers Discharge Plan Discharge Items Patient Disposition: Home - Self-Care Reason For Visit: ABDOMINAL PAIN Discharge Diagnosis: Acute cholecystitis Choledocholithiasis Activity: Per Instructions section Non-emergency contact: Primary Care Provider, Surgeon and Media Producer Call non-emergency contact if: you have any medication questions and your symptoms worsen Follow-up/Referrals: Guadalupe Higginbotham MD [Primary Care Provider] - Diet: Low Fat Addtl Attending Provider Instructions: For pain you can take Tylenol up to 3000 mg a day. Percocet was also prescribed for you by surgery in case your pain is more severe. Please take as prescribed and be aware that Percocet also contains Tylenol (acetaminophen). Avoid any aspirin or NSAIDs such as Motrin, ibuprofen, Aleve, for next 5 days. For constipation recommend MiraLAX daily as needed. Follow-up with general surgery in 2 weeks. Follow-up with GI in 4 weeks for stent removal. Addtl Forest Technician Provider Instructions: Post-Surgical ~Discharge Instructions Activity Recommendations: - lifting limitation: (20 pounds for 3-4 weeks), - exercise/sex/sports limit: (nonstrenuous for 2 weeks), - driving or machine use limit: (none for 1 week or until pain free or no longer taking narcotic pain medication), - Shower/bathe limit: (may shower beginning tonight) Diet: - Resume previous diet SPECIAL CARE INSTRUCTIONS: - May shower. Let water run over area and pat dry. - Leave steri strips on for one week. - Call the surgeon's office with any questions or concerns - - (ex. temperature higher than 101 degrees F, excessive bleeding or pain). MEDICATIONS: - Resume previous medications unless instructed otherwise by your surgeon. - May take extra strength Tylenol 650 mg every 6 hours as needed for mild pain. - Percocet 1 every 4 hours, as needed for severe pain, avoid taking Tylenol while taking Percocet as Percocet has Tylenol in it. - Stool softener recommended daily while taking narcotic pain medication. (OTC Colace) FOLLOW UP VISIT: - Please call the office to schedule a two week follow-up appointment. Office number Pending Studies at Discharge: Yes (Gallbladder pathology, will be reviewed at follow-up visit) Stand-Alone Forms: My [facility] [employer], Smoking Cessation Medications and DC Order Prescriptions: New oxycodone-acetaminophen 5-325 mg tablet 1 tab PO Q4H PRN (Reason: pain) Qty: 10 RF: 0 polyethylene glycol 3350 [Miralax] 17 gram Powder In Packet 17 g PO DAILY PRN (Reason: constipation) 5 Days RF: 0 Continued prenat.vits,ronak,vkl-wzpa-tevpo tablet 1 tab PO DAILY RF: 0 Discharge Orders: Discharge Order (Routine); Ordered 05/21/20 Ordered By: Sheldon F. Knab Admission Data Admit Date/Time: 05/18/20 22:10 Attending Provider: Sheldon Jamison Admit Provider: Lizzie Bunch Primary Care Provider: Guadalupe Higginbotham Other Providers: Lizzie Bunch ; Rickey Camargo ; Roberto Crawford ; Dasia Montoya
--- NOTE | 2020-05-21 16:05 | Surgery Progress Note ---
Date of Service PATIENT SEEN AT 9:15 AM, LATE ENTRY May 21, 2020 Assessment & Plan (1) Choledocholithiasis: POD # 1 s/p ERCP with biliary stent placement and laparoscopic cholecystectomy -vitals stable, afebrile - postop pain minimal ,controlled - no n/v - t. bili wnl, LFTS trending down Plan: Okay from surgical standpoint for discharge Discharge instructions reviewed avoid NSAIDs for 1 week per GI, will need ERCP in 4 weeks for stent removal Rx for Percocet prn pain sent to pharmacy f/u surgical office in 2 weeks (2) Cholelithiasis: as above Dr. Honeycutt saw patient separately and agrees with above. Admission and Anticipated Discharge Date Admission Date: May 18, 2020 Subjective patient feeling good pain controlled no n/v tolerated regular diet no chest pain/shortness of breath preop pain resolved Physical Exam Constitutional: WD/WN, vitals as above no acute distress Respiratory: normal respiratory effort; no respiratory distress Gastrointestinal (Abdomen): Inspection/Auscultation: abdomen normal to inspection; abdomen not distended Percussion/Palpation: + abdomen tender (mild at incision sites, appropriate postop) and abdomen soft; no guarding and abdomen not rigid Skin: no rashes, warm and dry + incision (covered with dressings/clean and dry) Psychiatric: A+Ox3, euthymic affect Results & Data ([facility]) Vital Signs (Past 12 Hours) Vital Signs Temp Pulse Pulse Resp BP Pulse Ox 05/21/20 13:47 36.9 C 58 L 20 123/73 99 05/21/20 12:00 36.9 C 58 L 20 123/73 99 05/21/20 07:18 36.8 C 51 L 17 147/86 H 97 Laboratory Results 05/21/20 05/21/20 Range/Units 07:16 07:16 WBC 6.43 (4.8-10.8) K/uL RBC 4.43 (4.2-5.4) M/uL Hgb 12.4 (12.0-16.0) g/dL Hct 38.5 (37-47) % MCV 86.9 (80-100) fL MCH 28.0 (25-34) pg MCHC 32.2 (32-36) g/dL RDW Std Deviation 47.7 H (36.4-46.3) fL RDW Coeff of [place] 15.2 H (11.5-14.5) % Plt Count 366 (130-400) K/uL MPV 10.9 H (7.4-10.4) fL Sodium 142 (136-145) mmol/L Potassium 3.6 D (3.5-5.1) mmol/L Chloride 109 H (98-107) mmol/L Carbon Dioxide 28 (21-32) mmol/L Anion Gap 5.0 (3-11) BUN 5 L (7-18) mg/dl Creatinine 0.89 (0.6-1.2) mg/dl Est Cr Clr Drug Dosing 120.0 ml/min Est GFR ( Amer) 100.8 Est GFR (Non-Af Amer) 87.0 BUN/Creatinine Ratio 5.9 L (10-20) Glucose 82 (70-99) mg/dl Calcium 8.2 L (8.5-10.1) mg/dl Total Bilirubin 0.5 (0.2-1) mg/dl AST 66 H (15-37) U/L ALT 146 H (12-78) U/L Alkaline Phosphatase 284 H (45-117) U/L Total Protein 6.6 (6.4-8.2) gm/dl Albumin 2.5 L (3.4-5.0) gm/dl Globulin 4.1 H (2.5-4.0) gm/dl Albumin/Globulin Ratio 0.6 L (0.9-2) (1) Cholelithiasis Biliary obstruction: without biliary obstruction Cholelithiasis location: other site Qualified Code(s): K80.80 - Other cholelithiasis without obstruction
== END 2020-05-21 14:28 | disposition home or self-care (01) | DRG 769 ==
LOC: ED 15:57 → SUATTDRO 22:10 → 3W 22:10